=== PATIENT | female | born 1985 | race Caucasian/White ===

== ENCOUNTER 2017-01-31 15:19 | Emergency (ER) | payer SELFPAY ==
--- NOTE | 2017-01-31 17:27 | ED CLINICAL REPORT ---
Clinical Report - Physicians/Mid Levels [facility] [address] [place] [address] 01/31/2017 15:20 [id number] Time Seen: 15:30; initial patient contact. Arrived- By private vehicle. Historian- patient. HISTORY OF PRESENT ILLNESS Chief Complaint: ABDOMINAL PAIN. At its maximum, severity described as mild. When seen in the E.D., severity described as mild. Modifying factors- worsened by food. Not relieved by anything. It is described as "pain" and diffuse. No radiation. This started about 4 days ago. The patient has had nausea, loss of appetite and vomiting. No diarrhea. Similar symptoms previously: Many times. Recent medical care: Not recently seen/assessed. REVIEW OF SYSTEMS No constipation, hematemesis, difficulty with urination, pain with urination or urinary frequency. No bloody stools or fever. She has had chills. All systems otherwise negative, except as recorded above. PAST HISTORY Cyclic Vomiting. PSEUDOseizure. Substance Abuse. Seizure Disorder? Appendectomy. No history of peptic ulcer. SOCIAL HISTORY Never smoker. No alcohol use or drug use. ADDITIONAL NOTES The nursing notes have been reviewed. PHYSICAL EXAM Vital Signs: 01/31/2017 15:28 BP: 125/72. HR: 64. RR: 18. O2 saturation: 98%. Temp: 98.3 F. Pain level now: 9/10. Have been reviewed as normal. Appearance: Alert. Oriented X3. Patient in mild distress. Eyes: Eyes normal inspection. ENT: Dry mucous membranes present. CVS: Normal heart rate and rhythm. Heart sounds normal. Respiratory: No respiratory distress. Breath sounds normal. Abdomen: Soft. Mild tenderness in the left upper quadrant. Bowel sounds normal. No organomegaly. No mass. Back: Normal inspection. No CVA tenderness. Skin: Skin warm and dry. Normal skin color. No rash. Normal skin turgor. Extremities: No lower extremity edema. Neuro: Oriented X 3. No motor deficit. LABS, X-RAYS, AND EKG Laboratory Tests: UA-Culture if indicated: (ABY: 01/31/2017 15:30) ( [facility] 01/31/2017 15:53) Final results Test Result Flag Units (Reference) URINE COLOR YELLOW URINE APPEARANCE CLEAR URINE GLUCOSE NEGATIVE (NEGATIVE) URINE BILIRUBIN ICTOTEST NEGATIVE (NEGATIVE) URINE KETONE TRACE (NEGATIVE) URINE SPECIFIC GRAVITY 1.025 (1.010-1.030) URINE PH 6.0 (5.0-8.0) URINE PROTEIN TRACE (NEGATIVE) URINE UROBILINOGEN 0.2 EU/dL (0.2-1.0) URINE NITRITE NEGATIVE (NEGATIVE) URINE BLOOD NEGATIVE (NEGATIVE) URINE LEUK ESTERASE NEGATIVE (NEGATIVE) URINE RBC 0-1 rbc/hpf (0-1) URINE WBC 1-3 wbc/hpf (0-1) URINE EPITHELIAL CELLS 5-10 EPI/hpf (0-5) URINE BACTERIA FEW (1+) (NONE SEEN) URINE COMMENT CULT NOT INDICATED 2+ MUCUSURINE CULTURES ARE SET-UP BASED ON THE FOLLOWING CRITERIA:POSITIVE NITRITEPOSITIVE LEUKOCYTE ESTERASEGREATER THAN 10 WHITE BLOOD CELLSMODERATE (2+) OR GREATER BACTERIA Urine: (ABY: 01/31/2017 15:30) ( [facility] 01/31/2017 15:49) Final results Test Result Flag Units (Reference) URINE NEGATIVE CBC w Diff: (ABY: 01/31/2017 15:40) ( [facility] 01/31/2017 15:54) Final results Test Result Flag Units (Reference) WHITE BLOOD COUNT 9.8 K/uL (4.5-11.5) RED BLOOD COUNT 4.78 M/uL (4.00-5.20) HEMOGLOBIN 13.8 gm/dL (12.0-16.0) HEMATOCRIT 40.9 % (36.0-46.0) MEAN CELL VOLUME 86 fL (80-100) MEAN CORPUSCULAR HGB 29 pg (26-34) MEAN CORPUSCULAR HGB CONC 34 g/dL (31-37) RED CELL DISTRIBUTION WIDTH 13.4 % (11.6-14.8) PLATELET COUNT 329 K/uL (150-400) NEUTROPHIL % 84.1 H % (50-75) LYMPH % 10.6 L % (25-40) MONO % 4.7 % (3-14) EOSINOPHIL % 0.1 % (0-4) BASOPHIL % 0.5 % (0-2) CMP: (ABY: 01/31/2017 15:40) ( MsgRcvd 01/31/2017 16:12) Final results Test Result Flag Units (Reference) GLUCOSE 118 H mg/dL (70-110) BUN 19 H mg/dL (7-18) CREATININE 0.7 mg/dL (0.6-1.3) Estimated GFR >60 mL/min Estimated GFR- >60 mL/min Note: Persistent reduction over 3 months in eGFR<60 mL/min/1.73 m2 defines CKD. Patients with eGFR values>=60 mL/min/1.73 m2 may also have CKD if evidence ofpersistent proteinuria. Additional information may be foundat www.kidney.org. SODIUM 140 mmol/L (136-145) POTASSIUM 3.4 L mmol/L (3.5-5.1) CHLORIDE 101 mmol/L (98-107) CARBON DIOXIDE 24 mmol/L (21-32) CALCIUM 9.3 mg/dL (8.5-10.1) TOTAL PROTEIN 8.4 H g/dL (6.4-8.2) ALBUMIN 4.5 g/dL (3.3-5.0) BILIRUBIN, TOTAL 1.2 H mg/dL (0.0-1.0) ALKALINE PHOSPHATASE 74 U/L (46-116) AST (SGOT) 17 U/L (15-37) ALT (SGPT) 26 U/L (12-78) LIPASE 82 U/L (73-393) AMYLASE 19 L U/L (25-115) . PROGRESS AND PROCEDURES Course of Care: 17:05 01/31/17. Pt has been here multiple times in the past with the same complaints. Only subjective findings. Normal labs again today w/ the exception of very mild hypokalemia. Nl WBC, not , and no UTI. Pt has received narcotics on multiple visits in the past 12 months from here. CLINICAL IMPRESSION Chronic left upper quadrant abdominal pain of unknown cause. Vomiting with nausea and dehydration. INSTRUCTIONS Drink plenty of fluids. Avoid alcohol and NSAIDS. NSAIDS include aspirin, ibuprofen (Advil) and naproxen (Aleve) until better. Your Current Medications: CONTINUE TAKING THE FOLLOWING MEDICATIONS: None*. Prescription Medications: Zofran (orally disintegrating tablets) 4 mg: take 1 orally every 6 hours as needed for nausea and vomiting. Dispense ten (10). No refill. Substitution is permissible. Zantac 150 mg: take 1 orally every 12 hours. Dispense sixty (60). No refills. Substitution is permissible. Follow-up: Screening today revealed the patient's blood pressure to be in the hypertensive range. The patient should follow up with a primary care provider for blood pressure management. Follow-up with: Zac Cramer MD, General Surgeon, , [facility], [address] [place] [address] Follow up in about two days. Call for an appointment. (Electronically signed by William Null Dr. 01/31/2017 17:14)
--- NOTE | 2017-01-31 17:27 | ED NURSING NOTES ---
Clinical Report - Nurses [facility] [address] [place] [address] 01/31/2017 15:20 Patient: ELIZA VAZQUEZ TRIAGE Triage time 15:28. Acuity: LEVEL 3. Chief Complaint: ABDOMINAL PAIN. 15:28 01/31/17. 15:01/31/17. Alert. SEPSIS SCREEN: Sepsis Screen. Negative (no infection suspected/documented). --15:31 Christiano Morrison R.N. 15:28 01/31/17. BP: 125/72. HR: 64. RR: 18. O2 saturation: 98% on room air. Temp: 98.3 F (oral). Pain level now: 9/10. --15:31 Christiano Morrison R.N. Weight: 72.5 kg estimated. Height/Length: 66 inches Per Patient. BMI: 25.8. --15:31 Christiano Morrison R.N. Medications None. --15:31 Christiano Morrison R.N. Medication/allergy information source: the patient. --15:31 Christiano Morrison R.N. Allergies Penicillins. --15:31 Christiano Morrison R.N. History Arrived by private vehicle. Historian: patient. Unaccompanied. Primary physician (KATE). 15:28 01/31/17. She has had nausea, vomiting and diarrhea. Treatment WORK FROM HOME: None. PAST MEDICAL HX: Last normal menstrual period- 1st Week of January started. Denies current . SOCIAL HX: The patient has had contact with a sick family member. (Children). FALL RISK ASSESSMENT: Fall risk assessment completed. No fall risk identified. NUTRITIONAL RISK ASSESSMENT: The nutritional risk assessment revealed no deficiencies. FUNCTIONAL ASSESSMENT: Functional assessment: no impairments noted. LEARNING NEEDS ASSESSMENT: The learning needs assessment revealed no barriers. SKIN INTEGRITY ASSESSMENT: Skin integrity risk assessment completed. No skin integrity risk identified. --15:31 Christiano Morrison R.N. PROBLEMS: Cyclic Vomiting. Abnormal Test. Anxiety Reaction. Abnormal Liver Function Test. Pseudoseizure. Substance Abuse. Nausea. Seizure. Ovarian Cyst. Abdominal Pain. Vomiting. Seizure Disorder. Immunizations. Cervical Radiculopathy. --15:31 Christiano Morrison R.N. ADDITIONAL SURGERIES: Appendectomy. Previous Abdominal Surgery. --15:31 Christiano Morrison R.N. Assessment 15:01/31/17. --15:31 Christiano Morrison R.N. Interventions 15:01/31/17. 15:01/31/17. ID and allergy band on patient. To treatment room. --15:31 Christiano Morrison R.N. PHYSICAL ASSESSMENT 15:01/31/17. To room via wheelchair. GENERAL / NEURO / PSYCH: Alert. Oriented X 4. Appears in pain. RESPIRATORY: Respirations not labored. CVS: Capillary refill less than 2 seconds. GI / : Abdominal tenderness in the left upper quadrant. SKIN: Skin is warm and dry. --15:32 Christiano Morrison R.N. NURSING PROGRESS NOTES 15:01/31/2017 Site #1 started via IV in the right antecubital space with an 20g angiocath; one attempt. Blood drawn: rainbow set. Labeled in the presence of the patient and sent to the lab. Saline lock flushed with 10 mL saline. --15:42 Christiano Morrison R.N. 15:01/31/17. The plan of care for this patient has been created. Monitoring of patient in place. Patient gowned. Head of bed elevated. Two patient identifiers checked. Call light placed in reach. Side rails up x 2. Bed placed in lowest position. Brakes of bed on. Patient ready for evaluation- chart flagged and notification provided. --15:32 Christiano Morrison R.N. 15:01/31/17. Patient ID band checked for patient name and birthdate: patient confirmed. Clean catch urine collected with return of yellow-colored urine. --15:32 Christiano Morrison R.N. 15:42 01/31/2017 Started bag #1 1000 mL IV Fluids IV NS (Saline); at 1000 mL/hr over 1 hour(s) via site #1. Allergies verified and confirmed 5 rights. IV patency established. IV site checked: no pain, redness, or swelling. IV flushed thoroughly pre- and post-medication administration. Completed per protocol. --15:42 Christiano Morrison R.N. 15:42 01/31/2017 Zofran (Ondansetron HCl) IVP 4 mg given over 2 minute(s) via site #1. Allergies verified and confirmed 5 rights. IV patency established. IV site checked: no pain, redness, or swelling. IV flushed thoroughly pre- and post-medication administration. IVP given by RN. --15:42 Christiano Morrison R.N. 15:57 01/31/2017 PHENERGAN (Promethazine HCl) IVP 25 mg given over 3 minute(s) via site #1. Allergies verified and confirmed 5 rights. IV patency established. IV site checked: no pain, redness, or swelling. IV flushed thoroughly pre- and post-medication administration. IVP given by RN. --15:57 Christiano Morrison R.N. 15:58 01/31/17. --15:58 Christiano Morrison R.N. 15:57 01/31/17. BP: 154/89. HR: 55. RR: 18. O2 saturation: 100% on room air. --15:58 Christiano Morrison R.N. 15:58 01/31/17. Patient informed about reason for wait and about plan of care. Patient waiting for lab results. --15:58 Christiano Morrison R.N. 16:25 01/31/2017 Started bag #1 1000 mL IV Fluids IV NS (Saline); at 1000 mL/hr over 1 hour(s) via site #1. Allergies verified and confirmed 5 rights. IV patency established. IV site checked: no pain, redness, or swelling. IV flushed thoroughly pre- and post-medication administration. Completed per protocol. --16:35 Christiano Morrison R.N. 16:25 01/31/2017 IV Fluids IV NS Discontinued: bag #1 infused. Total amount infused: 1000 mL. IV patency established. IV site checked: no pain, redness, or swelling. IV flushed thoroughly. --16:35 Christiano Morrison R.N. 16:34 01/31/2017 Started 20 mg of Famotidine IVPB in bag #1 50 mL; at 100 mL/hr over 30 minute(s) via site #1; Allergies verified and confirmed 5 rights. IV patency established. IV site checked: no pain, redness, or swelling. IV flushed thoroughly pre- and post-medication administration. Completed per protocol. --16:34 Christiano Morrison R.N. <<STRICKEN ENTRY-- 16:37 01/31/2017 Famotidine IVPB Discontinued: infused. Total amount infused: 50 mL. IV patency established. IV site checked: no pain, redness, or swelling. IV flushed thoroughly. --17:02 Christiano Morrison R.N. --END STRIKE>> Correction. --17:02 Christiano Morrison R.N. 16:57 01/31/2017 Famotidine IVPB Discontinued: infused. Total amount infused: 50 mL. IV patency established. IV site checked: no pain, redness, or swelling. IV flushed thoroughly. --17:02 Christiano Morrison R.N. 17:05 01/31/2017 Toradol IVP 30 mg given over 2 minute(s) via site #1. Allergies verified and confirmed 5 rights. IV patency established. IV site checked: no pain, redness, or swelling. IV flushed thoroughly pre- and post-medication administration. IVP given by RN. --17:05 Christiano Morrison R.N. 17:18 01/31/2017 IV Fluids IV NS Discontinued: bag #2 infused. Total amount infused: 1000 mL. IV patency established. IV site checked: no pain, redness, or swelling. IV flushed thoroughly. --17:28 Christiano Morrison R.N. DISPOSITION / DISCHARGE 17:21 01/31/2017 Site #1 removed upon discharge. Catheter intact. --17:21 Christiano Morrison R.N. 17:28 01/31/17. Condition at departure: improved. The goals identified in the patient's plan of care were met. No learning barriers present. Discharge instructions provided and reviewed with the patient. Reviewed warnings. Reviewed medication(s). Treatments reviewed. Patient verbalized understanding. Written instructions provided in French. FALL RISK ASSESSMENT: Fall risk assessment completed. No fall risk identified. --17:28 Christiano Morrison R.N. 17:21 01/31/17. BP: 150/85. HR: 77. RR: 14. O2 saturation: 100% on room air. Temp: 97.8 F (oral). --17:28 Christiano Morrison R.N. 17:28 01/31/17. The patient was discharged by the physician. She was discharged home and unaccompanied at time of discharge. She left the Emergency Department ambulatory and via private vehicle. --17:28 Christiano Morrison R.N. 17:28 01/31/17. Departure time: 17:28. --17:28 Christiano Morrison R.N. Locked/Released at 01/31/2017 17:30 by Christiano Morrison R.N.
--- NOTE | 2017-01-31 17:28 | ED ORDER SUMMARY ---
..... Patient: ELIZA VAZQUEZ OrderSheet [facility] VisitID: [id number] [place] [address] 31y, F Registration Date/Time: 01/31/2017 ORDER SHEET Weight: 72.5 kg (estimated) Allergies: Penicillins GENERAL ORDERS: UA-Culture if indicated Urgent (15:32 01/31/2017 JBoardley R.N. per protocol) (Ack 15:39 KHoerner) (15:39 KHoerner) Urine Urgent (15:32 01/31/2017 JBoardley R.N. per protocol) (Ack 15:39 KHoerner) (15:39 KHoerner) CBC w Diff Urgent (15:41 01/31/2017 JBoardley R.N. per protocol) (Ack 15:42 KHoerner) (15:46 JBoardley R.N.) CMP Urgent (15:41 01/31/2017 JBoardley R.N. per protocol) (Ack 15:42 KHoerner) (15:46 JBoardley R.N.) Amylase Urgent (15:41 01/31/2017 JBoardley R.N. per protocol) (Ack 15:42 KHoerner) (15:46 JBoardley R.N.) Lipase Urgent (15:41 01/31/2017 JBoardley R.N. per protocol) (Ack 15:42 KHoerner) (15:46 JBoardley R.N.) MEDICATION ORDERS: Phenergan IV 25 mg (HIGH ALERT MEDICATION, NOW) (15:51 01/31/2017 Ale Baptiste) (Ack 15:52 JBoardley R.N.) (15:57 JBoardley R.N.) IV FLUIDS: IV NS : initial bolus none -, then 1000 mL/hr for X1 (NOW); Routine (15:41 01/31/2017 JBoardley R.N. per protocol) (15:42 JBoardley R.N.) Zofran IV 4 mg (NOW) (15:41 01/31/2017 JBoardley R.N. per protocol) (15:42 Gonzalez R.N.) Famotidine IV 20 mg/50mL (NOW) (16:25 01/31/2017 Ale Baptiste) (Ack 16:27 Gonzalez R.N.) (16:34 JBoardlekenroy R.N.) IV NS : initial bolus none -, then 1000 mL/hr for X1 (NOW) (16:29 01/31/2017 Ale Baptiste) (16:35 Gonzalez Diaz.N.) Toradol IV 30 mg (NOW) (17:03 01/31/2017 Ale Baptiste) (17:05 Gonzalez R.N.) ORDER SHEET NOTES: [Electronically signed by William Null Dr. (17:14 01/31/2017)] [Electronically signed by Christiano Morrison R.N. (17:30 01/31/2017)] [Electronically locked/signed by Christiano Morrison R.N. (17:30 01/31/2017)]
--- NOTE | 2017-01-31 17:28 | ED ORDER SUMMARY ---
..... Patient: ELIZA VAZQUEZ OrderSheet [facility] VisitID: [id number] [place] [address] 31y, F Registration Date/Time: 01/31/2017 ORDER SHEET Weight: 72.5 kg (estimated) Allergies: Penicillins GENERAL ORDERS: UA-Culture if indicated Urgent (15:32 01/31/2017 JBoardley R.N. per protocol) (Ack 15:39 KHoerner) (15:39 KHoerner) Urine Urgent (15:32 01/31/2017 JBoardley R.N. per protocol) (Ack 15:39 KHoerner) (15:39 KHoerner) CBC w Diff Urgent (15:41 01/31/2017 JBoardley R.N. per protocol) (Ack 15:42 KHoerner) (15:46 JBoardley R.N.) CMP Urgent (15:41 01/31/2017 JBoardley R.N. per protocol) (Ack 15:42 KHoerner) (15:46 JBoardley R.N.) Amylase Urgent (15:41 01/31/2017 JBoardley R.N. per protocol) (Ack 15:42 KHoerner) (15:46 JBoardley R.N.) Lipase Urgent (15:41 01/31/2017 JBoardley R.N. per protocol) (Ack 15:42 KHoerner) (15:46 JBoardley R.N.) MEDICATION ORDERS: Phenergan IV 25 mg (HIGH ALERT MEDICATION, NOW) (15:51 01/31/2017 Ale Baptiste) (Ack 15:52 JBoardley R.N.) (15:57 JBoardley R.N.) IV FLUIDS: IV NS : initial bolus none -, then 1000 mL/hr for X1 (NOW); Routine (15:41 01/31/2017 JBoardley R.N. per protocol) (15:42 JBoardley R.N.) Zofran IV 4 mg (NOW) (15:41 01/31/2017 JBoardley R.N. per protocol) (15:42 Gonzalez R.N.) Famotidine IV 20 mg/50mL (NOW) (16:25 01/31/2017 Ale Baptiste) (Ack 16:27 Gonzalez R.N.) (16:34 JBoardlekenroy R.N.) IV NS : initial bolus none -, then 1000 mL/hr for X1 (NOW) (16:29 01/31/2017 Ale Baptiste) (16:35 Gonzalez Diaz.N.) Toradol IV 30 mg (NOW) (17:03 01/31/2017 Ale Baptiste) (17:05 Gonzalez R.N.) ORDER SHEET NOTES: [Electronically signed by William Null Dr. (17:14 01/31/2017)] [Electronically signed by Christiano Morrison R.N. (17:30 01/31/2017)] [Electronically locked/signed by Christiano Morrison R.N. (17:30 01/31/2017)]
--- NOTE | 2017-01-31 17:31 | ED DISCHARGE INSTRUCTIONS ---
Patient: ELIZA VAZQUEZ General Instructions [facility] VisitID: [id number] [place] [address] 31y, F Registration Date/Time: 01/31/2017 Chronic left upper quadrant abdominal pain of unknown cause. Vomiting with nausea and dehydration. INSTRUCTIONS Drink plenty of fluids. Avoid alcohol and NSAIDS. NSAIDS include aspirin, ibuprofen (Advil) and naproxen (Aleve) until better. Your Current Medications: CONTINUE TAKING THE FOLLOWING MEDICATIONS: None*. Prescription Medications: Zofran (orally disintegrating tablets) 4 mg: take 1 orally every 6 hours as needed for nausea and vomiting. Dispense ten (10). No refill. Substitution is permissible. Zantac 150 mg: take 1 orally every 12 hours. Dispense sixty (60). No refills. Substitution is permissible. Follow-up: Screening today revealed the patient's blood pressure to be in the hypertensive range. The patient should follow up with a primary care provider for blood pressure management. Follow-up with: Zac Cramer MD, General Surgeon, , [facility], [address] [place] [address] Follow up in about two days. Call for an appointment. ADDITIONAL INFORMATION Vomiting [6Yr-Adult] Vomiting is a common symptom that may be due to different causes. These include gastroenteritis ("stomach flu"), food poisoning and gastritis. There are other more serious causes of vomiting which may be hard to diagnose early in the illness. Therefore, it is important to watch for the warning signs listed below. The main danger from repeated vomiting is dehydration. This is due to excess loss of water and minerals from the body. When this occurs, body fluids must be replaced. Home Care: If symptoms are severe, rest at home for the next 24 hours. You may use acetaminophen (Tylenol) or ibuprofen (Motrin, Advil) to control fever, unless another medicine was prescribed. [NOTE : If you have chronic liver or kidney disease or ever had a stomach ulcer or GI bleeding, talk with your doctor before using these medicines.] (Aspirin should never be used in anyone under 18 years of age who is ill with a fever. It may cause severe liver damage.) Avoid tobacco and alcohol use, which may worsen your symptoms. If medicines for vomiting were prescribed, take as directed. Once vomiting stops, then follow these guidelines: During The First 12-24 Hours follow the diet below: FRUIT JUICES: Apple, grape juice, clear fruit drinks, and electrolyte replacement drinks. BEVERAGES: Soft drinks without caffeine; mineral water (plain or flavored), decaffeinated tea and coffee. SOUPS: Clear broth, consomm and bouillon DESSERTS: Plain gelatin, popsicles and fruit juice bars. As you feel better, you may add 6-8 ounces of yogurt per day. During The Next 24 Hours you may add the following to the above: Hot cereal, plain toast, bread, rolls, crackers Plain noodles, rice, mashed potatoes, chicken noodle or rice soup Unsweetened canned fruit (avoid pineapple), bananas Limit caffeine and chocolate. No spices or seasonings except salt. During The Next 24 Hours Gradually resume a normal diet, as you feel better and your symptoms lessen. Follow Up with your doctor as advised if you are not improving over the next 2-3 days. Get Prompt Medical Attention if any of the following occur: Constant right-sided lower abdominal pain or increasing general abdominal pain Continued vomiting (unable to keep liquids down) for 24 hours Frequent diarrhea (more than 5 times a day); blood (red or black color) or mucus in diarrhea Reduced urine output or extreme thirst Weakness, dizziness or fainting Unusually drowsy or confused Fever of 100.4F (38C) oral or higher, not better with fever medication Yellow color of the eyes or skin Abdominal Pain, Unknown Cause (Female) The exact cause of your abdominal (stomach) pain is not certain. This does not mean that this is something to worry about, or the right tests were not done. Everyone likes to know the exact cause of the problem, but sometimes with abdominal pain, there is no clear-cut cause, and this could be a good thing. The good news is that your symptoms can be treated, and you will feel better. Your condition does not seem serious now; however, sometimes the signs of a serious problem may take more time to appear. For this reason,it is important for you to watch for any new symptoms, problems,or worsening of your condition. Over the next few days, the abdominal pain may come and go, or be continuous. Other common symptoms can include nausea and vomiting. Sometimes it can be difficult to tell if you feel nauseous, you may just feel bad and not associate that feeling with nausea. Constipation, diarrhea, and a fever may go along with the pain. The pain may continue even if treated correctly over the following days. Depending on how things go, sometimes the cause can become clear and may require further or different treatment. Additional evaluations, medications, or tests may be needed. Home care Your health care provider may prescribe medications for pain, symptoms, or an infection. Follow the health care provider's instructions for taking these medications. General care Rest until your next exam. No strenuous activities. Try to find positions that ease discomfort. A small pillow placed on the abdomen may help relieve pain. Something warm on your abdomen (such as a heating pad) may help, but be careful not to burn yourself. Diet Do not force yourself to eat, especially if having cramps, vomiting, or diarrhea. Water is important so you do not get dehydrated. Soup may also be good. Sports drinks may also help, especially if they are not too acidic. Make sure you don't drink sugary drinks as this can make things worse. Take liquids in small amounts. Do not guzzle them. Caffeine sometimes makes the pain and cramping worse. Avoid dairy products if you have vomiting or diarrhea. Don't eat large amounts at a time. Wait a few minutes between bites. Eat a diet low in fiber (called a low-residue diet). Foods allowed include refined breads, white rice, fruit and vegetable juices without pulp, tender meats. These foods will pass more easily through the intestine. Avoid whole-grain foods, whole fruits and vegetables, meats, seeds and nuts, fried or fatty foods, dairy, alcohol and spicy foods until your symptoms go away. Follow-up care Follow up with your health care provider as instructed, or if your pain does not begin to improve in the next 24 hours. When to seek medical care Seek prompt medical care if any of the following occur: Pain gets worse or moves to the right lower abdomen New or worsening vomiting or diarrhea Swelling of the abdomen Unable to pass stool for more than three days Fever of 100.4F (38C) or higher, or as directed by your healthcare provider. Blood in vomit or bowel movements (dark red or black color) Jaundice (yellow color of eyes and skin) Weakness, dizziness Chest, arm, back, neck or jaw pain Unexpected vaginal bleeding or missed period Call 911 Call emergency services if any of the following occur: Trouble breathing Confusion Fainting or loss of consciousness Rapid heart rate Seizure [place] Diet A bland diet is used for patients with an upset stomach. It consists of foods that are mild and easy to digest. It is better to eat small frequent meals rather than three large meals a day. BEVERAGES OK: Fruit juices, non-caffeinated teas and coffee, non-carbonated cuello AVOID: Carbonated beverage, caffeinated tea and coffee, all alcoholic beverages BREAD OK: Refined white, wheat or rye bread, antonio or soda crackers, [place] toast, plain rolls, bagels AVOID: Whole-grain bread CEREAL OK: Refined cereals: cooked or ready to eat AVOID: Whole grain cereals and granola, or those containing bran, seeds or nuts DESSERTS OK: Peanut butter and all others except those to "avoid" AVOID: Chocolate, cocoa, coconut, popcorn, nuts, seeds, jam, marmalade FRUITS OK: Canned, cooked, frozen or fresh fruits without seeds or tough skin AVOID: Olives, skin and seeds of fruit MEATS OK: All fresh or preserved meat, fish and fowl AVOID: Any that are prepared with those spices to "avoid" CHEESE & EGGS OK: Eggs, cottage cheese, cream cheese, other cheeses AVOID: All cheeses made with those spices to "avoid" POTATOES & PASTA OK: Potato, rice, macaroni, noodles, spaghetti AVOID: None SOUPS OK: All soups without heavy seasoning AVOID: Soups made with those spices to "avoid" VEGETABLES OK: Canned, cooked, fresh or frozen mildly flavored vegetables without seeds, skins or coarse fiber AVOID: Vegetables prepared with those spices to "avoid"; skin and seeds of vegetables and those with coarse fiber SPICES OK: Salt, lemon and agdaagux juice, vinegar, all extracts, milagros, cinnamon, thyme, mace, allspice, paprika AVOID: [place] powder, cloves, pepper, seed spices, garlic, gravy pickles, highly seasoned salad dressings Ondansetron Oral disintegrating tablet What is this medicine? ONDANSETRON (on DUSTY se norma) is used to treat nausea and vomiting caused by chemotherapy. It is also used to prevent or treat nausea and vomiting after surgery. How should I use this medicine? These tablets are made to dissolve in the mouth. Do not try to push the tablet through the foil backing. With dry hands, peel away the foil backing and gently remove the tablet. Place the tablet in the mouth and allow it to dissolve, then swallow. While you may take these tablets with water, it is not necessary to do so. Talk to your recreation establishment manager regarding the use of this medicine in children. Special care may be needed. What side effects may I notice from receiving this medicine? Side effects that you should report to your doctor or health respiratory care instructor as soon as possible: allergic reactions like skin rash, itching or hives, swelling of the face, lips, or tongue breathing problems dizziness fast or irregular heartbeat feeling faint or lightheaded, falls fever and chills swelling of the hands and feet tightness in the chest Side effects that usually do not require medical attention (report to your doctor or health respiratory care instructor if they continue or are bothersome): constipation or diarrhea headache What may interact with this medicine? Do not take this medicine with any of the following medications: -apomorphine -cisapride -dofetilide -dronedarone -pimozide -thioridazine -ziprasidone This medicine may also interact with the following medications: -carbamazepine -phenytoin -rifampicin -tramadol -other medicines that prolong the QT interval (cause an abnormal heart rhythm) What if I miss a dose? If you miss a dose, take it as soon as you can. If it is almost time for your next dose, take only that dose. Do not take double or extra doses. Where should I keep my medicine? Keep out of the reach of children. Store between 2 and 30 degrees C (36 and 86 degrees F). Throw away any unused medicine after the expiration date. What should I tell my health care provider before I take this medicine? They need to know if you have any of these conditions: heart disease history of irregular heartbeat liver disease low levels of magnesium or potassium in the blood an unusual or allergic reaction to ondansetron, granisetron, other medicines, foods, dyes, or preservatives or trying to get breast-feeding What should I watch for while using this medicine? Check with your doctor or health respiratory care instructor as soon as you can if you have any sign of an allergic reaction. Ranitidine Hydrochloride Oral tablet What is this medicine? RANITIDINE (ra ILIR sheikh) is a type of antihistamine that blocks the release of stomach acid. It is used to treat stomach or intestinal ulcers. It can relieve ulcer pain and discomfort, and the heartburn from acid reflux. How should I use this medicine? Take this medicine by mouth with a glass of water. Follow the directions on the prescription label. If you only take this medicine once a day, take it at bedtime. Take your medicine at regular intervals. Do not take your medicine more often than directed. Do not stop taking except on your doctor's advice. Talk to your recreation establishment manager regarding the use of this medicine in children. Special care may be needed. What side effects may I notice from receiving this medicine? Side effects that you should report to your doctor or health respiratory care instructor as soon as possible: agitation, nervousness, depression, hallucinations allergic reactions like skin rash, itching or hives, swelling of the face, lips, or tongue breast enlargement in both males and females breathing problems redness, blistering, peeling or loosening of the skin, including inside the mouth unusual bleeding or bruising unusually weak or tired vomiting yellowing of the skin or eyes Side effects that usually do not require medical attention (report to your doctor or health respiratory care instructor if they continue or are bothersome): constipation or diarrhea dizziness headache nausea What may interact with this medicine? atazanavir delavirdine gefitinib glipizide ketoconazole midazolam procainamide propantheline triazolam warfarin What if I miss a dose? If you miss a dose, take it as soon as you can. If it is almost time for your next dose, take only that dose. Do not take double or extra doses. Where should I keep my medicine? Keep out of the reach of children. Store at room temperature between 15 and 30 degrees C (59 and 86 degrees F). Protect from light and moisture. Keep container tightly closed. Throw away any unused medicine after the expiration date. What should I tell my health care provider before I take this medicine? They need to know if you have any of these conditions: kidney disease liver disease porphyria an unusual or allergic reaction to ranitidine, other medicines, foods, dyes, or preservatives or trying to get breast-feeding What should I watch for while using this medicine? Tell your doctor or health respiratory care instructor if your condition does not start to get better or gets worse. You may need to take this medicine for several days as prescribed before your symptoms get better. Finish the full course of tablets prescribed, even if you feel better. Do not smoke cigarettes or drink alcohol. These increase irritation in your stomach and can lengthen the time it will take for ulcers to heal. Cigarettes and alcohol can also make acid reflux or heartburn worse. If you get black, tarry stools or vomit up what looks like coffee grounds, call your doctor or health respiratory care instructor at once. You may have a bleeding ulcer. You have been given the following additional information: Vomiting (6Y-Adult) Abdominal Pain, Unknown Cause, (Female) Diet, [place] (Adult) Ondansetron Oral disintegrating tablet Ranitidine Hydrochloride Oral tablet (Electronically signed by William Null Dr. 01/31/2017 17:14)
--- NOTE | 2017-01-31 17:31 | ED MAR SUMMARY ---
..... Medication Administration Record [facility] [address] [place] [place] [address] Patient: ELIZA VAZQUEZ Visit ID: [id number] 31y, F Weight: 72.5 kg Height/Length: 66 in BMI: 25.8 ALLERGIES: Penicillins Start 15:42 01/31/2017 Christiano Morrison R.N., Stop 16:01/31/2017 Christiano Morrison R.N. Medication Administered: IV NS (SALINE), Dose: IV Fluids over 1 hour(s), Rate: 1000 mL/hr, Dispensed: 1000 mL bag, Site: #1 right AC. Medication Ordered: IV NS : initial bolus none -, then 1000 mL/hr for X1 (NOW); Routine. Given 15:42 01/31/2017 Christiano Morrison R.N. Medication Administered: ZOFRAN [IVP] (ONDANSETRON HCL), Dose: 4 mg IVP over 2 minute(s), Site: #1 right AC. Medication Ordered: Zofran IV 4 mg (NOW). Given 15:57 01/31/2017 Christiano Morrison R.N. Medication Administered: PHENERGAN [IVP] (PROMETHAZINE HCL), Dose: 25 mg IVP over 3 minute(s), Site: #1 right AC. Medication Ordered: Phenergan IV 25 mg (HIGH ALERT MEDICATION, NOW). Start 16:25 01/31/2017 Christiano Morrison R.N., Stop 17:18 01/31/2017 Christiano Morrison R.N. Medication Administered: IV NS (SALINE), Dose: IV Fluids over 1 hour(s), Rate: 1000 mL/hr, Dispensed: 1000 mL bag, Site: #1 right AC. Medication Ordered: IV NS : initial bolus none -, then 1000 mL/hr for X1 (NOW). Start 16:34 01/31/2017 Christiano Morrison R.N., Stop 16:57 01/31/2017 Christiano Morrison R.N. Medication Administered: FAMOTIDINE [IVPB], Dose: 20 mg IVPB over 30 minute(s), Rate: 100 mL/hr, Dispensed: 50 mL bag, Site: #1 right AC. Medication Ordered: Famotidine IV 20 mg/50mL (NOW). Given 17:05 01/31/2017 Christiano Morrison R.N. Medication Administered: TORADOL [IVP], Dose: 30 mg IVP over 2 minute(s), Site: #1 right AC. Medication Ordered: Toradol IV 30 mg (NOW).
--- NOTE | 2017-01-31 17:31 | ED MED RECONCILIATION SUMMARY ---
Patient: ELIZA VAZQUEZ Medication Reconciliation Report [facility] VisitID: [id number] [place] [address] 31y, F Registration Date/Time: 01/31/2017 Weight: 72.5 kg Height/Length: 66 in. BMI: 25.8 ALLERGIES: Penicillins The patient's Home Medications are listed below: NONE. The source(s) of the original Home Medication information: patient The following Medications were given to the patient in the Emergency Department: IV NS IV Fluids bolus 0, then 1000 mL/hr, administered: 01/31/2017 3:42:00 PM Zofran [IVP] IVP 4 mg, administered: 01/31/2017 3:42:00 PM PHENERGAN [IVP] IVP 25 mg, administered: 01/31/2017 3:57:00 PM Famotidine [IVPB] IVPB bolus 0, then 20 mg 100 mL/hr, administered: 01/31/2017 4:34:00 PM IV NS IV Fluids bolus 0, then 1000 mL/hr, administered: 01/31/2017 4:25:00 PM Toradol [IVP] IVP 30 mg, administered: 01/31/2017 5:05:00 PM The following Medications were prescribed to the patient: Zofran (orally disintegrating tablets) 4 mg: take 1 orally every 6 hours as needed for nausea and vomiting. Dispense ten (10). No refill. Substitution is permissible. -- William Null Dr. Zantac 150 mg: take 1 orally every 12 hours. Dispense sixty (60). No refills. Substitution is permissible. -- William Null Dr.
--- NOTE | 2017-01-31 17:31 | ED MAR SUMMARY ---
..... Medication Administration Record [facility] [address] [place] [address] Patient: ELIZA VAZQUEZ Visit ID: [id number] 31y, F Weight: 72.5 kg Height/Length: 66 in BMI: 25.8 ALLERGIES: Penicillins Start 15:42 01/31/2017 Christiano Morrison R.N., Stop 16:01/31/2017 Christiano Morrison R.N. Medication Administered: IV NS (SALINE), Dose: IV Fluids over 1 hour(s), Rate: 1000 mL/hr, Dispensed: 1000 mL bag, Site: #1 right AC. Medication Ordered: IV NS : initial bolus none -, then 1000 mL/hr for X1 (NOW); Routine. Given 15:42 01/31/2017 Christiano Morrison R.N. Medication Administered: ZOFRAN [IVP] (ONDANSETRON HCL), Dose: 4 mg IVP over 2 minute(s), Site: #1 right AC. Medication Ordered: Zofran IV 4 mg (NOW). Given 15:57 01/31/2017 Christiano Morrison R.N. Medication Administered: PHENERGAN [IVP] (PROMETHAZINE HCL), Dose: 25 mg IVP over 3 minute(s), Site: #1 right AC. Medication Ordered: Phenergan IV 25 mg (HIGH ALERT MEDICATION, NOW). Start 16:25 01/31/2017 Christiano Morrison R.N., Stop 17:18 01/31/2017 Christiano Morrison R.N. Medication Administered: IV NS (SALINE), Dose: IV Fluids over 1 hour(s), Rate: 1000 mL/hr, Dispensed: 1000 mL bag, Site: #1 right AC. Medication Ordered: IV NS : initial bolus none -, then 1000 mL/hr for X1 (NOW). Start 16:34 01/31/2017 Christiano Morrison R.N., Stop 16:57 01/31/2017 Christiano Morrison R.N. Medication Administered: FAMOTIDINE [IVPB], Dose: 20 mg IVPB over 30 minute(s), Rate: 100 mL/hr, Dispensed: 50 mL bag, Site: #1 right AC. Medication Ordered: Famotidine IV 20 mg/50mL (NOW). Given 17:05 01/31/2017 Christiano Morrison R.N. Medication Administered: TORADOL [IVP], Dose: 30 mg IVP over 2 minute(s), Site: #1 right AC. Medication Ordered: Toradol IV 30 mg (NOW).
--- NOTE | 2017-01-31 17:31 | ED MED RECONCILIATION SUMMARY ---
Patient: ELIZA VAZQUEZ Medication Reconciliation Report [facility] VisitID: [id number] [place] [address] 31y, F Registration Date/Time: 01/31/2017 Weight: 72.5 kg Height/Length: 66 in. BMI: 25.8 ALLERGIES: Penicillins The patient's Home Medications are listed below: NONE. The source(s) of the original Home Medication information: patient The following Medications were given to the patient in the Emergency Department: IV NS IV Fluids bolus 0, then 1000 mL/hr, administered: 01/31/2017 3:42:00 PM Zofran [IVP] IVP 4 mg, administered: 01/31/2017 3:42:00 PM PHENERGAN [IVP] IVP 25 mg, administered: 01/31/2017 3:57:00 PM Famotidine [IVPB] IVPB bolus 0, then 20 mg 100 mL/hr, administered: 01/31/2017 4:34:00 PM IV NS IV Fluids bolus 0, then 1000 mL/hr, administered: 01/31/2017 4:25:00 PM Toradol [IVP] IVP 30 mg, administered: 01/31/2017 5:05:00 PM The following Medications were prescribed to the patient: Zofran (orally disintegrating tablets) 4 mg: take 1 orally every 6 hours as needed for nausea and vomiting. Dispense ten (10). No refill. Substitution is permissible. -- William Null Dr. Zantac 150 mg: take 1 orally every 12 hours. Dispense sixty (60). No refills. Substitution is permissible. -- William Null Dr.
== END 2017-01-31 17:28 | disposition home or self-care (01) ==
LOC: ED SRH 15:19
DX: E86.0 Dehydration (principal); R10.12 Left upper quadrant pain; R11.2 Nausea with vomiting, unspecified; Z88.0 Allergy status to penicillin
CPT/HCPCS: 90004; 90100; 92235; 92530; 93070; 95059

== ENCOUNTER 2017-02-27 15:50 | Emergency (ER) | payer SELFPAY ==
--- NOTE | 2017-02-27 18:35 | ED ORDER SUMMARY ---
..... Patient: ELIZA VAZQUEZ OrderSheet [facility] VisitID: [id number] [place] [address] 31y, F Registration Date/Time: 02/27/2017 ORDER SHEET Weight: 72.5 kg (stated) Allergies: Penicillins GENERAL ORDERS: CBC w Diff Urgent (16:05 02/27/2017 EKoroleva P.A.-C) (Ack 16:06 NHouse ER Tech1) (16:07 SReitz R.N.) UA-Culture if indicated Urgent (16:05 02/27/2017 EKoroleva P.A.-C) (Ack 16:06 NHouse ER Tech1) (17:47 SReitz R.N.) Urine Urgent (16:05 02/27/2017 EKoroleva P.A.-C) (Ack 16:06 NHouse ER Tech1) (17:47 SReitz R.N.) Urine Drug Screen Urgent (16:05 02/27/2017 EKoroleva P.A.-C) (Ack 16:06 NHouse ER Tech1) (17:47 SReitz R.N.) CMP Urgent (16:05 02/27/2017 EKoroleva P.A.-C) (Ack 16:06 NHouse ER Tech1) (16:07 SReitz R.N.) Lipase Urgent (17:16 02/27/2017 EKoroleva P.A.-C) (17:19 NHouse ER Tech1) MEDICATION ORDERS: Phenergan IV 12.5 mg (HIGH ALERT MEDICATION, NOW) (16:09 02/27/2017 EKoroleva P.A.-C) (Ack 16:10 SReitz R.N.) (16:23 SReitz R.N.) Macrobid PO 100 mg (NOW) (18:33 02/27/2017 EKoroleva P.A.-C) (Ack 18:35 SReitz R.N.) (18:38 SReitz R.N.) IV FLUIDS: IV NS : initial bolus 1000 mL (1000 mL/hr), then 1000 mL/hr for X1 (NOW); Jalen (16:04 02/27/2017 EKoroleva P.A.-C) (Ack 16:05 SReitz R.N.) (16:08 SReitz R.N.) Benadryl IV 50 mg (NOW) (16:09 02/27/2017 EKoroleva P.A.-C) (Ack 16:10 SReitz R.N.) (16:17 SReitz R.N.) Zofran IV 8 mg (NOW) (16:09 02/27/2017 EKoroleva P.A.-C) (Ack 16:10 SReitz R.N.) (16:21 SReitz R.N.) Toradol IV 30 mg (NOW) (16:09 02/27/2017 EKoroleva P.A.-C) (Ack 16:10 SReitz R.N.) (16:24 SReitz R.N.) Haldol IV 3 mg (HIGH ALERT MEDICATION, NOW) (16:09 02/27/2017 EKoroleva P.A.-C) (Ack 16:10 SReitz R.N.) (16:26 SReitz R.N.) ORDER SHEET NOTES: [Electronically signed by Vania Subramanian-Bre (18:43 02/27/2017)] [Electronically signed by Beatrice Bowman R.N. (18:45 02/27/2017)] [Electronically locked/signed by Beatrice Bowman R.N. (18:45 02/27/2017)]
--- NOTE | 2017-02-27 18:35 | ED CLINICAL REPORT ---
Clinical Report - Physicians/Mid Levels [facility] [address] [place] [address] 02/27/2017 15:51 Patient: ELIZA VAZQUEZ Time Seen: 16:08 Feb 27 2017. Arrived- By private vehicle. Historian- patient. HISTORY OF PRESENT ILLNESS Chief Complaint: VOMITING and DIARRHEA. This started 3 days [employer] and is still present. The patient has had nausea, vomiting and diarrhea. No black stools. (Patient reports onset of vomiting and diarrhea and abdominal pain over the last 3 days. Patient reports history of similar. Patient reports out of insurance, does not have a primary care provider. Patient reports previous endoscopy, which was unremarkable. Denies any fevers or chills. Patient denies any new medications. Patient denies any sick contacts.). REVIEW OF SYSTEMS No fever, difficulty with urination or chest pain. All systems otherwise negative, except as recorded above. PAST HISTORY Problems: Sick Contact. Cyclic Vomiting. Abnormal Test. Anxiety Reaction. Abnormal Liver Function Test. Pseudoseizure. Substance Abuse. Nausea. Seizure. Ovarian Cyst. Abdominal Pain. Vomiting. Seizure Disorder. Immunizations. Cervical Radiculopathy. LNMP - Last Normal Menstrual Period. Additional Surgeries: Appendectomy. Previous Abdominal Surgery. Medications: None. Allergies: Penicillins. SOCIAL HISTORY Never smoker. History of drug use: marijuana. ADDITIONAL NOTES The nursing notes have been reviewed. PHYSICAL EXAM Vital Signs: 02/27/2017 16:00 BP: 133/76. HR: 73. RR: 16. O2 saturation: 99%. Temp: 98.7 F. Appearance: Alert. Appears to be in pain. Patient in mild distress. Eyes: Eyes normal inspection. ENT: Ears normal. Nose normal. CVS: Normal heart rate and rhythm. Heart sounds normal. Respiratory: No respiratory distress. Abdomen: Mild tenderness diffusely. No guarding or Woods's sign present. Neuro: Oriented X 3. LABS, X-RAYS, AND EKG Laboratory Tests: UA-Culture if indicated: (ABY: 02/27/2017 17:40) ( MsgRcvd 02/27/2017 18:25) Final results Test Result Flag Units (Reference) URINE COLOR MARIE URINE APPEARANCE CLEAR URINE GLUCOSE NEGATIVE (NEGATIVE) URINE BILIRUBIN NEGATIVE (NEGATIVE) URINE KETONE NEGATIVE (NEGATIVE) URINE SPECIFIC GRAVITY 1.025 (1.010-1.030) URINE PH 6.0 (5.0-8.0) URINE PROTEIN 1+ (NEGATIVE) URINE UROBILINOGEN 2.0 EU/dL (0.2-1.0) The urobilinogen reagent area may react with interferingsubstances known to react with [employer]'s reagent such asp-aminosalicylic acid and sulfonamides. Atypical colorreactions may be obtained in the presence of highconcentrations of p-aminobenzoic acid. The absence ofurobilinogen cannot be determined with this test. URINE NITRITE NEGATIVE (NEGATIVE) URINE BLOOD NEGATIVE (NEGATIVE) URINE LEUK ESTERASE NEGATIVE (NEGATIVE) URINE RBC NONE SEEN rbc/hpf (0-1) URINE WBC 1-3 wbc/hpf (0-1) URINE EPITHELIAL CELLS 3-5 EPI/hpf (0-5) URINE BACTERIA MODERATE (2+ TO 3+) (NONE SEEN) URINE COMMENT CULTURE INDICATED 3+ MUCUSURINE CULTURES ARE SET-UP BASED ON THE FOLLOWING CRITERIA:POSITIVE NITRITEPOSITIVE LEUKOCYTE ESTERASEGREATER THAN 10 WHITE BLOOD CELLSMODERATE (2+) OR GREATER BACTERIA Urine: (ABY: 02/27/2017 17:40) ( [facility] 02/27/2017 18:00) Final results Test Result Flag Units (Reference) URINE NEGATIVE CBC w Diff: (ABY: 02/27/2017 16:10) ( [facility] 02/27/2017 16:31) Final results Test Result Flag Units (Reference) WHITE BLOOD COUNT 10.1 K/uL (4.5-11.5) RED BLOOD COUNT 4.76 M/uL (4.00-5.20) HEMOGLOBIN 13.7 gm/dL (12.0-16.0) HEMATOCRIT 41.0 % (36.0-46.0) MEAN CELL VOLUME 86 fL (80-100) MEAN CORPUSCULAR HGB 29 pg (26-34) MEAN CORPUSCULAR HGB CONC 33 g/dL (31-37) RED CELL DISTRIBUTION WIDTH 13.9 % (11.6-14.8) PLATELET COUNT 380 K/uL (150-400) NEUTROPHIL % 84.7 H % (50-75) LYMPH % 11.1 L % (25-40) MONO % 4.1 % (3-14) EOSINOPHIL % 0 % (0-4) BASOPHIL % 0.1 % (0-2) Lipase: (ABY: 02/27/2017 16:30) ( [facility] 02/27/2017 17:33) Final results Test Result Flag Units (Reference) LIPASE 89 U/L (73-393) Urine Drug Screen: (ABY: 02/27/2017 17:40) ( [facility] 02/27/2017 18:16) Final results Test Result Flag Units (Reference) AMPHETAMINE/METHAMPHETAMINE NEGATIVE (NEGATIVE) BARBITURATE NEGATIVE (NEGATIVE) BENZODIAZEPINE NEGATIVE (NEGATIVE) CANNABINOID POSITIVE H (NEGATIVE) COCAINE NEGATIVE (NEGATIVE) ECSTASY NEGATIVE (NEGATIVE) METHADONE NEGATIVE (NEGATIVE) OPIATE POSITIVE H (NEGATIVE) The urine drug screen is a qualitative screening test fordrug overdose and abuse. All screen results should beconsidered as presumptive.Drugs screened for are as follows:BenzodiazepinesCocaineAmphetamines/MetamphetaminesTHC (Tetrahydrocannabinol)OpiatesBarbituratesEcstasyMethadonePositive results are unconfirmed. For confirmation, notifythe lab for the specimen to be sent to the reference lab.All confirmations must be performed by a differentmethodology.The ingestion of natural herbal and plant productscontaining Ephedra/Ephedra metabolites can produce in urineone or more substances capable of cross reacting withamphetamine/methamphetamine immunoassays. These testsprovide a preliminary result only. A more specificalternative chemical method must be used to obtain aconfirmed analytical result. CMP: (ABY: 02/27/2017 16:10) ( [facility] 02/27/2017 17:22) Final results Test Result Flag Units (Reference) GLUCOSE 119 H mg/dL (70-110) BUN 12 mg/dL (7-18) CREATININE 0.8 mg/dL (0.6-1.3) Estimated GFR >60 mL/min Estimated GFR- >60 mL/min Note: Persistent reduction over 3 months in eGFR<60 mL/min/1.73 m2 defines CKD. Patients with eGFR values>=60 mL/min/1.73 m2 may also have CKD if evidence ofpersistent proteinuria. Additional information may be foundat www.kidney.org. SODIUM 141 mmol/L (136-145) POTASSIUM 3.2 L mmol/L (3.5-5.1) CHLORIDE 103 mmol/L (98-107) CARBON DIOXIDE 25 mmol/L (21-32) CALCIUM 8.7 mg/dL (8.5-10.1) TOTAL PROTEIN 8.0 g/dL (6.4-8.2) ALBUMIN 4.2 g/dL (3.3-5.0) BILIRUBIN, TOTAL 1.0 mg/dL (0.0-1.0) ALKALINE PHOSPHATASE 69 U/L (46-116) AST (SGOT) 20 U/L (15-37) ALT (SGPT) 23 U/L (12-78) . PROGRESS AND PROCEDURES Course of Care: Patient able to tolerate by mouth sips. CBC unremarkable, signs of likely early cystitis. No CVA tenderness. Patient afebrile. Signs of small amount of hypokalemia, patient will be treated for such as well. Patient otherwise stable. Patient with no signs of acute surgical abdomen. This is a recurrent problem, patient urged to follow up with GI as well as her primary care provider. 02/27/2017 18:39 BP: 131/71. HR: 64. RR: 16. O2 saturation: 100%. Temp: 98.6 F. Sequeira-Angelo pain scale: 4/10. Patient is stable. Patient/family counseled. Differential Diagnosis: I considered gastritis, gastroenteritis, peptic ulcer disease, gastroesophageal reflux disease, acute appendicitis, diverticulitis, small bowel obstruction, gallbladder disease, liver disease, pancreatic disease, biliary colic, hepatitis, splenic disease, splenic injury, abdominal pathology, intraabdominal abscess, urologic or gynecologic causes, urinary tract infection, cystitis, ovarian cyst, pelvic inflammatory disease, abdominal aortic aneurysm and diabetic ketoacidosis as a possible cause of abdominal pain in this patient. This is a partial list of diagnoses considered. Disposition: Discharged. Condition: good. CLINICAL IMPRESSION Vomiting with nausea. Chronic abdominal pain. Urinary tract infection. Hypokalemia INSTRUCTIONS Drink plenty of fluids. Prescription Medications: Zofran (orally disintegrating tablets) 4 mg: take 1 orally for 3 days. Dispense ten (10). No refill. Substitution is permissible. Macrobid 100 mg: Take 1 capsule orally every 12 hours for 7 days. No refills. Substitution is permissible. Klor-Con 10 mEq: take 1 tablet orally every 8 hours. Dispense fifteen (15). No refills. Substitution is permissible. OTC Medications: Benadryl Allergy 25 mg (available over the counter): take 1-2 orally for 3 days. Dispense fifteen (15). No refill. Substitution is permissible. Follow-up: Follow up with your doctor in three days. Understanding of the discharge instructions verbalized. (Electronically signed by Vania Subramanian P.A.-C 02/27/2017 18:43)
--- NOTE | 2017-02-27 18:35 | ED CLINICAL REPORT ---
Clinical Report - Physicians/Mid Levels [facility] [address] [place] [address] 02/27/2017 15:51 Patient: ELIZA VAZQUEZ Time Seen: 16:08 Feb 27 2017. Arrived- By private vehicle. Historian- patient. HISTORY OF PRESENT ILLNESS Chief Complaint: VOMITING and DIARRHEA. This started 3 days [employer] and is still present. The patient has had nausea, vomiting and diarrhea. No black stools. (Patient reports onset of vomiting and diarrhea and abdominal pain over the last 3 days. Patient reports history of similar. Patient reports out of insurance, does not have a primary care provider. Patient reports previous endoscopy, which was unremarkable. Denies any fevers or chills. Patient denies any new medications. Patient denies any sick contacts.). REVIEW OF SYSTEMS No fever, difficulty with urination or chest pain. All systems otherwise negative, except as recorded above. PAST HISTORY Problems: Sick Contact. Cyclic Vomiting. Abnormal Test. Anxiety Reaction. Abnormal Liver Function Test. Pseudoseizure. Substance Abuse. Nausea. Seizure. Ovarian Cyst. Abdominal Pain. Vomiting. Seizure Disorder. Immunizations. Cervical Radiculopathy. LNMP - Last Normal Menstrual Period. Additional Surgeries: Appendectomy. Previous Abdominal Surgery. Medications: None. Allergies: Penicillins. SOCIAL HISTORY Never smoker. History of drug use: marijuana. ADDITIONAL NOTES The nursing notes have been reviewed. PHYSICAL EXAM Vital Signs: 02/27/2017 16:00 BP: 133/76. HR: 73. RR: 16. O2 saturation: 99%. Temp: 98.7 F. Appearance: Alert. Appears to be in pain. Patient in mild distress. Eyes: Eyes normal inspection. ENT: Ears normal. Nose normal. CVS: Normal heart rate and rhythm. Heart sounds normal. Respiratory: No respiratory distress. Abdomen: Mild tenderness diffusely. No guarding or Woods's sign present. Neuro: Oriented X 3. LABS, X-RAYS, AND EKG Laboratory Tests: UA-Culture if indicated: (ABY: 02/27/2017 17:40) ( MsgRcvd 02/27/2017 18:25) Final results Test Result Flag Units (Reference) URINE COLOR MARIE URINE APPEARANCE CLEAR URINE GLUCOSE NEGATIVE (NEGATIVE) URINE BILIRUBIN NEGATIVE (NEGATIVE) URINE KETONE NEGATIVE (NEGATIVE) URINE SPECIFIC GRAVITY 1.025 (1.010-1.030) URINE PH 6.0 (5.0-8.0) URINE PROTEIN 1+ (NEGATIVE) URINE UROBILINOGEN 2.0 EU/dL (0.2-1.0) The urobilinogen reagent area may react with interferingsubstances known to react with [employer] reagent such asp-aminosalicylic acid and sulfonamides. Atypical colorreactions may be obtained in the presence of highconcentrations of p-aminobenzoic acid. The absence ofurobilinogen cannot be determined with this test. URINE NITRITE NEGATIVE (NEGATIVE) URINE BLOOD NEGATIVE (NEGATIVE) URINE LEUK ESTERASE NEGATIVE (NEGATIVE) URINE RBC NONE SEEN rbc/hpf (0-1) URINE WBC 1-3 wbc/hpf (0-1) URINE EPITHELIAL CELLS 3-5 EPI/hpf (0-5) URINE BACTERIA MODERATE (2+ TO 3+) (NONE SEEN) URINE COMMENT CULTURE INDICATED 3+ MUCUSURINE CULTURES ARE SET-UP BASED ON THE FOLLOWING CRITERIA:POSITIVE NITRITEPOSITIVE LEUKOCYTE ESTERASEGREATER THAN 10 WHITE BLOOD CELLSMODERATE (2+) OR GREATER BACTERIA Urine: (ABY: 02/27/2017 17:40) ( [facility] 02/27/2017 18:00) Final results Test Result Flag Units (Reference) URINE NEGATIVE CBC w Diff: (ABY: 02/27/2017 16:10) ( [facility] 02/27/2017 16:31) Final results Test Result Flag Units (Reference) WHITE BLOOD COUNT 10.1 K/uL (4.5-11.5) RED BLOOD COUNT 4.76 M/uL (4.00-5.20) HEMOGLOBIN 13.7 gm/dL (12.0-16.0) HEMATOCRIT 41.0 % (36.0-46.0) MEAN CELL VOLUME 86 fL (80-100) MEAN CORPUSCULAR HGB 29 pg (26-34) MEAN CORPUSCULAR HGB CONC 33 g/dL (31-37) RED CELL DISTRIBUTION WIDTH 13.9 % (11.6-14.8) PLATELET COUNT 380 K/uL (150-400) NEUTROPHIL % 84.7 H % (50-75) LYMPH % 11.1 L % (25-40) MONO % 4.1 % (3-14) EOSINOPHIL % 0 % (0-4) BASOPHIL % 0.1 % (0-2) Lipase: (ABY: 02/27/2017 16:30) ( [facility] 02/27/2017 17:33) Final results Test Result Flag Units (Reference) LIPASE 89 U/L (73-393) Urine Drug Screen: (ABY: 02/27/2017 17:40) ( [facility] 02/27/2017 18:16) Final results Test Result Flag Units (Reference) AMPHETAMINE/METHAMPHETAMINE NEGATIVE (NEGATIVE) BARBITURATE NEGATIVE (NEGATIVE) BENZODIAZEPINE NEGATIVE (NEGATIVE) CANNABINOID POSITIVE H (NEGATIVE) COCAINE NEGATIVE (NEGATIVE) ECSTASY NEGATIVE (NEGATIVE) METHADONE NEGATIVE (NEGATIVE) OPIATE POSITIVE H (NEGATIVE) The urine drug screen is a qualitative screening test fordrug overdose and abuse. All screen results should beconsidered as presumptive.Drugs screened for are as follows:BenzodiazepinesCocaineAmphetamines/MetamphetaminesTHC (Tetrahydrocannabinol)OpiatesBarbituratesEcstasyMethadonePositive results are unconfirmed. For confirmation, notifythe lab for the specimen to be sent to the reference lab.All confirmations must be performed by a differentmethodology.The ingestion of natural herbal and plant productscontaining Ephedra/Ephedra metabolites can produce in urineone or more substances capable of cross reacting withamphetamine/methamphetamine immunoassays. These testsprovide a preliminary result only. A more specificalternative chemical method must be used to obtain aconfirmed analytical result. CMP: (ABY: 02/27/2017 16:10) ( [facility] 02/27/2017 17:22) Final results Test Result Flag Units (Reference) GLUCOSE 119 H mg/dL (70-110) BUN 12 mg/dL (7-18) CREATININE 0.8 mg/dL (0.6-1.3) Estimated GFR >60 mL/min Estimated GFR- >60 mL/min Note: Persistent reduction over 3 months in eGFR<60 mL/min/1.73 m2 defines CKD. Patients with eGFR values>=60 mL/min/1.73 m2 may also have CKD if evidence ofpersistent proteinuria. Additional information may be foundat www.kidney.org. SODIUM 141 mmol/L (136-145) POTASSIUM 3.2 L mmol/L (3.5-5.1) CHLORIDE 103 mmol/L (98-107) CARBON DIOXIDE 25 mmol/L (21-32) CALCIUM 8.7 mg/dL (8.5-10.1) TOTAL PROTEIN 8.0 g/dL (6.4-8.2) ALBUMIN 4.2 g/dL (3.3-5.0) BILIRUBIN, TOTAL 1.0 mg/dL (0.0-1.0) ALKALINE PHOSPHATASE 69 U/L (46-116) AST (SGOT) 20 U/L (15-37) ALT (SGPT) 23 U/L (12-78) . PROGRESS AND PROCEDURES Course of Care: Patient able to tolerate by mouth sips. CBC unremarkable, signs of likely early cystitis. No CVA tenderness. Patient afebrile. Signs of small amount of hypokalemia, patient will be treated for such as well. Patient otherwise stable. Patient with no signs of acute surgical abdomen. This is a recurrent problem, patient urged to follow up with GI as well as her primary care provider. 02/27/2017 18:39 BP: 131/71. HR: 64. RR: 16. O2 saturation: 100%. Temp: 98.6 F. Sequeira-Angelo pain scale: 4/10. Patient is stable. Patient/family counseled. Differential Diagnosis: I considered gastritis, gastroenteritis, peptic ulcer disease, gastroesophageal reflux disease, acute appendicitis, diverticulitis, small bowel obstruction, gallbladder disease, liver disease, pancreatic disease, biliary colic, hepatitis, splenic disease, splenic injury, abdominal pathology, intraabdominal abscess, urologic or gynecologic causes, urinary tract infection, cystitis, ovarian cyst, pelvic inflammatory disease, abdominal aortic aneurysm and diabetic ketoacidosis as a possible cause of abdominal pain in this patient. This is a partial list of diagnoses considered. Disposition: Discharged. Condition: good. CLINICAL IMPRESSION Vomiting with nausea. Chronic abdominal pain. Urinary tract infection. Hypokalemia INSTRUCTIONS Drink plenty of fluids. Prescription Medications: Zofran (orally disintegrating tablets) 4 mg: take 1 orally for 3 days. Dispense ten (10). No refill. Substitution is permissible. Macrobid 100 mg: Take 1 capsule orally every 12 hours for 7 days. No refills. Substitution is permissible. Klor-Con 10 mEq: take 1 tablet orally every 8 hours. Dispense fifteen (15). No refills. Substitution is permissible. OTC Medications: Benadryl Allergy 25 mg (available over the counter): take 1-2 orally for 3 days. Dispense fifteen (15). No refill. Substitution is permissible. Follow-up: Follow up with your doctor in three days. Understanding of the discharge instructions verbalized. (Electronically signed by Vania Subramanian P.A.-C 02/27/2017 18:43)
--- NOTE | 2017-02-27 18:35 | ED ORDER SUMMARY ---
..... Patient: ELIZA VAZQUEZ OrderSheet [facility] VisitID: [id number] [place] [address] 31y, F Registration Date/Time: 02/27/2017 ORDER SHEET Weight: 72.5 kg (stated) Allergies: Penicillins GENERAL ORDERS: CBC w Diff Urgent (16:05 02/27/2017 EKoroleva P.A.-C) (Ack 16:06 NHouse ER Tech1) (16:07 SReitz R.N.) UA-Culture if indicated Urgent (16:05 02/27/2017 EKoroleva P.A.-C) (Ack 16:06 NHouse ER Tech1) (17:47 SReitz R.N.) Urine Urgent (16:05 02/27/2017 EKoroleva P.A.-C) (Ack 16:06 NHouse ER Tech1) (17:47 SReitz R.N.) Urine Drug Screen Urgent (16:05 02/27/2017 EKoroleva P.A.-C) (Ack 16:06 NHouse ER Tech1) (17:47 SReitz R.N.) CMP Urgent (16:05 02/27/2017 EKoroleva P.A.-C) (Ack 16:06 NHouse ER Tech1) (16:07 SReitz R.N.) Lipase Urgent (17:16 02/27/2017 EKoroleva P.A.-C) (17:19 NHouse ER Tech1) MEDICATION ORDERS: Phenergan IV 12.5 mg (HIGH ALERT MEDICATION, NOW) (16:09 02/27/2017 EKoroleva P.A.-C) (Ack 16:10 SReitz R.N.) (16:23 SReitz R.N.) Macrobid PO 100 mg (NOW) (18:33 02/27/2017 EKoroleva P.A.-C) (Ack 18:35 SReitz R.N.) (18:38 SReitz R.N.) IV FLUIDS: IV NS : initial bolus 1000 mL (1000 mL/hr), then 1000 mL/hr for X1 (NOW); Jalen (16:04 02/27/2017 EKoroleva P.A.-C) (Ack 16:05 SReitz R.N.) (16:08 SReitz R.N.) Benadryl IV 50 mg (NOW) (16:09 02/27/2017 EKoroleva P.A.-C) (Ack 16:10 SReitz R.N.) (16:17 SReitz R.N.) Zofran IV 8 mg (NOW) (16:09 02/27/2017 EKoroleva P.A.-C) (Ack 16:10 SReitz R.N.) (16:21 SReitz R.N.) Toradol IV 30 mg (NOW) (16:09 02/27/2017 EKoroleva P.A.-C) (Ack 16:10 SReitz R.N.) (16:24 SReitz R.N.) Haldol IV 3 mg (HIGH ALERT MEDICATION, NOW) (16:09 02/27/2017 EKoroleva P.A.-C) (Ack 16:10 SReitz R.N.) (16:26 SReitz R.N.) ORDER SHEET NOTES: [Electronically signed by Vania Subramanian-Bre (18:43 02/27/2017)] [Electronically signed by Beatrice Bowman R.N. (18:45 02/27/2017)] [Electronically locked/signed by Beatrice Bowman R.N. (18:45 02/27/2017)]
--- NOTE | 2017-02-27 18:35 | ED NURSING NOTES ---
Clinical Report - Nurses [facility] [place] [address] 02/27/2017 15:51 Patient: ELIZA VAZQUEZ TRIAGE Triage time 16:00. Acuity: LEVEL 3. Chief Complaint: ABDOMINAL PAIN, VOMITING and DIARRHEA. Alert. SEPSIS SCREEN: Sepsis Screen. Negative (no infection suspected/documented). MICHELA COMA SCORE: Michela Coma Scale: 15- eyes open spontaneously (4); best verbal response- oriented x 4 (5); best motor response- obeys commands (6). --16:04 Beatrice Bowman R.N. 16:00 02/27/17. BP: 133/76. HR: 73. RR: 16. O2 saturation: 99%. Temp: 98.7 F. Pain level now 9/10. --16:04 Beatrice Bowman R.N. Weight: 72.5 kg stated. Height/Length: 66 inches Per Patient. BMI: 25.8. --16:03 Beatrice Bowman R.N. Medications None. --16:04 Beatrice Bowman R.N. Allergies Penicillins. --16:04 Beatrice Bowman R.N. History Arrived by private vehicle. Historian: patient. Accompanied by (mary). Primary physician (Dr. Beverly). Onset. (3 days ago). Treatment GAS WORKER: None. PAST MEDICAL HX: Immunizations: up-to-date. Uses an intrauterine device. SOCIAL HX: Never smoker. History of drug use: marijuana. ("sometimes"). No alcohol use. No recent travel. No known contact with a sick individual. ABUSE ASSESSMENT: No report of abuse. NUTRITIONAL RISK ASSESSMENT: The nutritional risk assessment revealed no deficiencies. FUNCTIONAL ASSESSMENT: Functional assessment: no impairments noted. LEARNING NEEDS ASSESSMENT: The learning needs assessment revealed no barriers. --16:04 Beatrice Bowman R.N. PROBLEMS: Cyclic Vomiting. Abnormal Test. Anxiety Reaction. Abnormal Liver Function Test. Pseudoseizure. Substance Abuse. Nausea. Seizure. Ovarian Cyst. Abdominal Pain. Vomiting. Seizure Disorder. Cervical Radiculopathy. --16:04 Beatrice Bowman R.N. ADDITIONAL SURGERIES: Appendectomy. Previous Abdominal Surgery. --16:04 Beatrice Bowman R.N. Interventions ID band on patient. Transported via wheelchair. --16:04 Beatrice Bowman R.N. PHYSICAL ASSESSMENT To room via wheelchair. GENERAL / NEURO / PSYCH: Alert. Oriented X 4. Appears in no acute distress. HEENT: Mucous membranes are pink. RESPIRATORY: Respirations not labored. CVS: Capillary refill less than 2 seconds. GI / : Abdomen soft. Abdominal tenderness in the periumbilical area. SKIN: Skin is warm and dry. --16:05 Beatrice Bowman R.N. NURSING PROGRESS NOTES Patient gowned. Head of bed elevated. Two patient identifiers checked. Call light placed in reach. Side rails up x 2. Bed placed in lowest position. Brakes of bed on. Patient ready for evaluation- chart flagged. --16:05 Beatrice Bowman R.N. 16:02/27/2017 Site #1 started via IV in the right antecubital space with an 20g angiocath, with aseptic technique and good blood return; one attempt. Blood drawn: rainbow set. Labeled in the presence of the patient and sent to the lab. Saline lock flushed with 10 mL saline (Accessed by PRIYA Martinez). --16:05 Beatrice Bowman R.N. 16:02/27/2017 Started bag #1 1000 mL IV Fluids IV NS (Saline); at 1000 mL/hr over 1 hour(s) via site #1 via IV pump. Allergies verified and confirmed 5 rights. IV patency established. IV site checked: no pain, redness, or swelling. IV flushed thoroughly pre- and post-medication administration. --16:08 Beatrice Bowman R.N. 16:02/27/2017 Benadryl (DiphenhydrAMINE HCl) IVP 50 mg given over 2 minute(s) via site #1. Allergies verified, confirmed 5 rights and sedative warning given to the patient. IV patency established. IV site checked: no pain, redness, or swelling. IV flushed thoroughly pre- and post-medication administration. --16:17 Beatrice Bowman R.N. 16:19 02/27/2017 Zofran (Ondansetron HCl) IVP 8 mg given over 2 minute(s) via site #1. Allergies verified and confirmed 5 rights. IV patency established. IV site checked: no pain, redness, or swelling. IV flushed thoroughly pre- and post-medication administration. --16:21 Beatrice Bowman R.N. 16:23 02/27/2017 PHENERGAN (Promethazine HCl) IVP 12.5 mg given over 1 minute(s) via site #1. Allergies verified and confirmed 5 rights. IV patency established. IV site checked: no pain, redness, or swelling. IV flushed thoroughly pre- and post-medication administration. --16:23 Beatrice Bowman R.N. 16:24 02/27/2017 Toradol IVP 30 mg given over 1 minute(s) via site #1. Allergies verified and confirmed 5 rights. IV patency established. IV site checked: no pain, redness, or swelling. IV flushed thoroughly pre- and post-medication administration. --16:24 Beatrice Bowman R.N. 16:26 02/27/2017 HALDOL (Haloperidol Lactate) IVP 3 mg given over 2 minute(s) via site #1. Allergies verified, confirmed 5 rights and sedative warning given to the patient. IV patency established. IV site checked: no pain, redness, or swelling. IV flushed thoroughly pre- and post-medication administration. --16:26 Beatrice Bowman R.N. 16:28 02/27/17. BP: 144/94. HR: 90. RR: 16. O2 saturation: 99%. --16:28 Beatrice Bowman R.N. ( lab at the bedside for re-draw.). --16:29 Beatrice Bowman R.N. Reassessment after medication administered. She has had no adverse reaction. Overall patient status- she states feels better. --16:52 Beatrice Bowman R.N. ( Pt's eyes closed and it moving her arms and legs; shaking. Called pt's name, no response. Pt. answered after calling her name three times and states, "what just happened." Pt. is also tearful and states, "I can't stop moving, I just want to get comfortable." Provider notified no new orders at this time.). --17:47 Beatrice Bowman R.N. Patient ID band checked for patient name, birthdate and medical record number: patient confirmed. Instructions provided to collect clean catch urine and patient verbalized understanding. Clean catch urine collected with return of yellow-colored clear urine; sample sent to lab for urinalysis. Specimen labeled in the presence of the patient. --17:47 Beatrice Bowman R.N. 18:21 02/27/17. BP: 110/60. HR: 70. RR: 16. O2 saturation: 99%. --18:21 Beatrice Bowman R.N. Patient and family informed about reason for wait. --18:21 Beatrice Bowman R.N. 18:21 02/27/2017 IV Fluids IV NS Discontinued: bag #1 infused. Total amount infused: 1000 mL. IV patency established. IV site checked: no pain, redness, or swelling. IV flushed thoroughly. --18:21 Beatrice Bowman R.N. 18:22 02/27/2017 Started bag #2 1000 mL IV Fluids IV NS (Saline); at 1000 mL/hr over 1 hour(s) via site #1 via IV pump. Allergies verified and confirmed 5 rights. IV patency established. IV site checked: no pain, redness, or swelling. IV flushed thoroughly pre- and post-medication administration. --18:22 Beatrice Bowman R.N. 18:38 02/27/2017 Macrobid PO 100 mg given. Allergies verified and confirmed 5 rights. --18:38 Beatrice Bowman R.N. 18:38 02/27/2017 IV Fluids IV NS Discontinued: bag #2 infused. Total amount infused: 100 mL. IV patency established. IV site checked: no pain, redness, or swelling. IV flushed thoroughly. --18:38 Beatrice Bowman R.N. DISPOSITION / DISCHARGE 18:39 02/27/17. BP: 131/71. HR: 64. RR: 16. O2 saturation: 100%. Temp: 98.6 FYe SequeiraAngelo pain scale: 01/15. --18:39 Beatrice Bowman R.N. 18:39 02/27/2017 Site #1 removed upon discharge. Catheter intact. Manual pressure and bandaid applied. --18:39 Beatrice Bowman R.N. 18:44. Condition at departure: stable. No learning barriers present. Discharge instructions provided and reviewed with the patient. Reviewed medication(s) side effects, precautions, dosing and course information. Prescription(s) given to the patient. Reviewed referral to family practice for followup. Patient verbalized understanding. Written instructions provided in [place]. The patient was discharged home and accompanied by small order cutter. She left the Emergency Department ambulatory and via private vehicle. Electrical Accessories I Assembler driving. Medication list reviewed and validated. --18:44 Beatrice Bowman R.N. Departure time: 18:45. --18:45 Beatrice Bowman R.N. Locked/Released at 02/27/2017 18:45 by Beatrice Bowman R.N.
--- NOTE | 2017-02-27 18:35 | ED NURSING NOTES ---
Clinical Report - Nurses [facility] [place] [address] 02/27/2017 15:51 Patient: ELIZA VAZQUEZ TRIAGE Triage time 16:00. Acuity: LEVEL 3. Chief Complaint: ABDOMINAL PAIN, VOMITING and DIARRHEA. Alert. SEPSIS SCREEN: Sepsis Screen. Negative (no infection suspected/documented). MICHELA COMA SCORE: Michela Coma Scale: 15- eyes open spontaneously (4); best verbal response- oriented x 4 (5); best motor response- obeys commands (6). --16:04 Beatrice Bowman R.N. 16:00 02/27/17. BP: 133/76. HR: 73. RR: 16. O2 saturation: 99%. Temp: 98.7 F. Pain level now 9/10. --16:04 Beatrice Bowman R.N. Weight: 72.5 kg stated. Height/Length: 66 inches Per Patient. BMI: 25.8. --16:03 Beatrice Bowman R.N. Medications None. --16:04 Beatrice Bowman R.N. Allergies Penicillins. --16:04 Beatrice Bowman R.N. History Arrived by private vehicle. Historian: patient. Accompanied by (mary). Primary physician (Dr. Beverly). Onset. (3 days ago). Treatment DRAWING IN HAND: None. PAST MEDICAL HX: Immunizations: up-to-date. Uses an intrauterine device. SOCIAL HX: Never smoker. History of drug use: marijuana. ("sometimes"). No alcohol use. No recent travel. No known contact with a sick individual. ABUSE ASSESSMENT: No report of abuse. NUTRITIONAL RISK ASSESSMENT: The nutritional risk assessment revealed no deficiencies. FUNCTIONAL ASSESSMENT: Functional assessment: no impairments noted. LEARNING NEEDS ASSESSMENT: The learning needs assessment revealed no barriers. --16:04 Beatrice Bowman R.N. PROBLEMS: Cyclic Vomiting. Abnormal Test. Anxiety Reaction. Abnormal Liver Function Test. Pseudoseizure. Substance Abuse. Nausea. Seizure. Ovarian Cyst. Abdominal Pain. Vomiting. Seizure Disorder. Cervical Radiculopathy. --16:04 Beatrice Bowman R.N. ADDITIONAL SURGERIES: Appendectomy. Previous Abdominal Surgery. --16:04 Beatrice Bowman R.N. Interventions ID band on patient. Transported via wheelchair. --16:04 Beatrice Bowman R.N. PHYSICAL ASSESSMENT To room via wheelchair. GENERAL / NEURO / PSYCH: Alert. Oriented X 4. Appears in no acute distress. HEENT: Mucous membranes are pink. RESPIRATORY: Respirations not labored. CVS: Capillary refill less than 2 seconds. GI / : Abdomen soft. Abdominal tenderness in the periumbilical area. SKIN: Skin is warm and dry. --16:05 Beatrice Bowman R.N. NURSING PROGRESS NOTES Patient gowned. Head of bed elevated. Two patient identifiers checked. Call light placed in reach. Side rails up x 2. Bed placed in lowest position. Brakes of bed on. Patient ready for evaluation- chart flagged. --16:05 Beatrice Bowman R.N. 16:02/27/2017 Site #1 started via IV in the right antecubital space with an 20g angiocath, with aseptic technique and good blood return; one attempt. Blood drawn: rainbow set. Labeled in the presence of the patient and sent to the lab. Saline lock flushed with 10 mL saline (Accessed by PRIYA Martinez). --16:05 Beatrice Bowman R.N. 16:02/27/2017 Started bag #1 1000 mL IV Fluids IV NS (Saline); at 1000 mL/hr over 1 hour(s) via site #1 via IV pump. Allergies verified and confirmed 5 rights. IV patency established. IV site checked: no pain, redness, or swelling. IV flushed thoroughly pre- and post-medication administration. --16:08 Beatrice Bowman R.N. 16:02/27/2017 Benadryl (DiphenhydrAMINE HCl) IVP 50 mg given over 2 minute(s) via site #1. Allergies verified, confirmed 5 rights and sedative warning given to the patient. IV patency established. IV site checked: no pain, redness, or swelling. IV flushed thoroughly pre- and post-medication administration. --16:17 Beatrice Bowman R.N. 16:19 02/27/2017 Zofran (Ondansetron HCl) IVP 8 mg given over 2 minute(s) via site #1. Allergies verified and confirmed 5 rights. IV patency established. IV site checked: no pain, redness, or swelling. IV flushed thoroughly pre- and post-medication administration. --16:21 Beatrice Bowman R.N. 16:23 02/27/2017 PHENERGAN (Promethazine HCl) IVP 12.5 mg given over 1 minute(s) via site #1. Allergies verified and confirmed 5 rights. IV patency established. IV site checked: no pain, redness, or swelling. IV flushed thoroughly pre- and post-medication administration. --16:23 Beatrice Bowman R.N. 16:24 02/27/2017 Toradol IVP 30 mg given over 1 minute(s) via site #1. Allergies verified and confirmed 5 rights. IV patency established. IV site checked: no pain, redness, or swelling. IV flushed thoroughly pre- and post-medication administration. --16:24 Beatrice Bowman R.N. 16:26 02/27/2017 HALDOL (Haloperidol Lactate) IVP 3 mg given over 2 minute(s) via site #1. Allergies verified, confirmed 5 rights and sedative warning given to the patient. IV patency established. IV site checked: no pain, redness, or swelling. IV flushed thoroughly pre- and post-medication administration. --16:26 Beatrice Bowman R.N. 16:28 02/27/17. BP: 144/94. HR: 90. RR: 16. O2 saturation: 99%. --16:28 Beatrice Bowman R.N. ( lab at the bedside for re-draw.). --16:29 Beatrice Bowman R.N. Reassessment after medication administered. She has had no adverse reaction. Overall patient status- she states feels better. --16:52 Beatrice Bowman R.N. ( Pt's eyes closed and it moving her arms and legs; shaking. Called pt's name, no response. Pt. answered after calling her name three times and states, "what just happened." Pt. is also tearful and states, "I can't stop moving, I just want to get comfortable." Provider notified no new orders at this time.). --17:47 Beatrice Bowman R.N. Patient ID band checked for patient name, birthdate and medical record number: patient confirmed. Instructions provided to collect clean catch urine and patient verbalized understanding. Clean catch urine collected with return of yellow-colored clear urine; sample sent to lab for urinalysis. Specimen labeled in the presence of the patient. --17:47 Beatrice Bowman R.N. 18:21 02/27/17. BP: 110/60. HR: 70. RR: 16. O2 saturation: 99%. --18:21 Beatrice Bowman R.N. Patient and family informed about reason for wait. --18:21 Beatrice Bowman R.N. 18:21 02/27/2017 IV Fluids IV NS Discontinued: bag #1 infused. Total amount infused: 1000 mL. IV patency established. IV site checked: no pain, redness, or swelling. IV flushed thoroughly. --18:21 Beatrice Bowman R.N. 18:22 02/27/2017 Started bag #2 1000 mL IV Fluids IV NS (Saline); at 1000 mL/hr over 1 hour(s) via site #1 via IV pump. Allergies verified and confirmed 5 rights. IV patency established. IV site checked: no pain, redness, or swelling. IV flushed thoroughly pre- and post-medication administration. --18:22 Beatrice Bowman R.N. 18:38 02/27/2017 Macrobid PO 100 mg given. Allergies verified and confirmed 5 rights. --18:38 Beatrice Bowman R.N. 18:38 02/27/2017 IV Fluids IV NS Discontinued: bag #2 infused. Total amount infused: 100 mL. IV patency established. IV site checked: no pain, redness, or swelling. IV flushed thoroughly. --18:38 Beatrice Bowman R.N. DISPOSITION / DISCHARGE 18:39 02/27/17. BP: 131/71. HR: 64. RR: 16. O2 saturation: 100%. Temp: 98.6 FYe SequeiraAngelo pain scale: 01/15. --18:39 Beatrice Bowman R.N. 18:39 02/27/2017 Site #1 removed upon discharge. Catheter intact. Manual pressure and bandaid applied. --18:39 Beatrice Bowman R.N. 18:44. Condition at departure: stable. No learning barriers present. Discharge instructions provided and reviewed with the patient. Reviewed medication(s) side effects, precautions, dosing and course information. Prescription(s) given to the patient. Reviewed referral to family practice for followup. Patient verbalized understanding. Written instructions provided in [place]. The patient was discharged home and accompanied by maintenance of way foreman. She left the Emergency Department ambulatory and via private vehicle. [employer] driving. Medication list reviewed and validated. --18:44 Beatrice Bowman R.N. Departure time: 18:45. --18:45 Beatrice Bowman R.N. Locked/Released at 02/27/2017 18:45 by Beatrice Bowman R.N.
--- NOTE | 2017-02-27 18:46 | ED MED RECONCILIATION SUMMARY ---
Patient: ELIZA VAZQUEZ Medication Reconciliation Report [facility] VisitID: [id number] [place] [address] 31y, F Registration Date/Time: 02/27/2017 Weight: 72.5 kg Height/Length: 66 in. BMI: 25.8 ALLERGIES: Penicillins The patient's Home Medications are listed below: NONE. The source(s) of the original Home Medication information: Not obtained. The following Medications were given to the patient in the Emergency Department: IV NS IV Fluids bolus 0, then 1000 mL/hr, administered: 02/27/2017 4:08:00 PM Benadryl [IVP] IVP 50 mg, administered: 02/27/2017 4:16:00 PM Zofran [IVP] IVP 8 mg, administered: 02/27/2017 4:19:00 PM PHENERGAN [IVP] IVP 12.5 mg, administered: 02/27/2017 4:23:00 PM Toradol [IVP] IVP 30 mg, administered: 02/27/2017 4:24:00 PM HALDOL [IVP] IVP 3 mg, administered: 02/27/2017 4:26:00 PM IV NS IV Fluids bolus 0, then 1000 mL/hr, administered: 02/27/2017 6:22:00 PM Macrobid [PO] PO 100 mg, administered: 02/27/2017 6:38:00 PM The following Medications were prescribed to the patient: Zofran (orally disintegrating tablets) 4 mg: take 1 orally for 3 days. Dispense ten (10). No refill. Substitution is permissible. -- Deanneolejacinto, Vania, P.A.-C Macrobid 100 mg: Take 1 capsule orally every 12 hours for 7 days. No refills. Substitution is permissible. -- Deanneoleva, Vania, P.A.-C Klor-Con 10 mEq: take 1 tablet orally every 8 hours. Dispense fifteen (15). No refills. Substitution is permissible. -- Deanneoleva, Vania, P.A.-C Benadryl Allergy 25 mg (available over the counter): take 1-2 orally for 3 days. Dispense fifteen (15). No refill. Substitution is permissible. -- Vania Subramanian P.A.-C
--- NOTE | 2017-02-27 18:46 | ED DISCHARGE INSTRUCTIONS ---
Patient: ELIZA VAZQUEZ General Instructions [facility] VisitID: [id number] [place] [address] 31y, F Registration Date/Time: 02/27/2017 Vomiting with nausea. Chronic abdominal pain. Urinary tract infection. Hypokalemia INSTRUCTIONS Drink plenty of fluids. Prescription Medications: Zofran (orally disintegrating tablets) 4 mg: take 1 orally for 3 days. Dispense ten (10). No refill. Substitution is permissible. Macrobid 100 mg: Take 1 capsule orally every 12 hours for 7 days. No refills. Substitution is permissible. Klor-Con 10 mEq: take 1 tablet orally every 8 hours. Dispense fifteen (15). No refills. Substitution is permissible. OTC Medications: Benadryl Allergy 25 mg (available over the counter): take 1-2 orally for 3 days. Dispense fifteen (15). No refill. Substitution is permissible. Follow-up: Follow up with your doctor in three days. Understanding of the discharge instructions verbalized. ADDITIONAL INFORMATION Vomiting [6Yr-Adult] Vomiting is a common symptom that may be due to different causes. These include gastroenteritis ("stomach flu"), food poisoning and gastritis. There are other more serious causes of vomiting which may be hard to diagnose early in the illness. Therefore, it is important to watch for the warning signs listed below. The main danger from repeated vomiting is dehydration. This is due to excess loss of water and minerals from the body. When this occurs, body fluids must be replaced. Home Care: If symptoms are severe, rest at home for the next 24 hours. You may use acetaminophen (Tylenol) or ibuprofen (Motrin, Advil) to control fever, unless another medicine was prescribed. [NOTE : If you have chronic liver or kidney disease or ever had a stomach ulcer or GI bleeding, talk with your doctor before using these medicines.] (Aspirin should never be used in anyone under 18 years of age who is ill with a fever. It may cause severe liver damage.) Avoid tobacco and alcohol use, which may worsen your symptoms. If medicines for vomiting were prescribed, take as directed. Once vomiting stops, then follow these guidelines: During The First 12-24 Hours follow the diet below: FRUIT JUICES: Apple, grape juice, clear fruit drinks, and electrolyte replacement drinks. BEVERAGES: Soft drinks without caffeine; mineral water (plain or flavored), decaffeinated tea and coffee. SOUPS: Clear broth, consomm and bouillon DESSERTS: Plain gelatin, popsicles and fruit juice bars. As you feel better, you may add 6-8 ounces of yogurt per day. During The Next 24 Hours you may add the following to the above: Hot cereal, plain toast, bread, rolls, crackers Plain noodles, rice, mashed potatoes, chicken noodle or rice soup Unsweetened canned fruit (avoid pineapple), bananas Limit caffeine and chocolate. No spices or seasonings except salt. During The Next 24 Hours Gradually resume a normal diet, as you feel better and your symptoms lessen. Follow Up with your doctor as advised if you are not improving over the next 2-3 days. Get Prompt Medical Attention if any of the following occur: Constant right-sided lower abdominal pain or increasing general abdominal pain Continued vomiting (unable to keep liquids down) for 24 hours Frequent diarrhea (more than 5 times a day); blood (red or black color) or mucus in diarrhea Reduced urine output or extreme thirst Weakness, dizziness or fainting Unusually drowsy or confused Fever of 100.4F (38C) oral or higher, not better with fever medication Yellow color of the eyes or skin Abdominal Pain, Unknown Cause (Female) The exact cause of your abdominal (stomach) pain is not certain. This does not mean that this is something to worry about, or the right tests were not done. Everyone likes to know the exact cause of the problem, but sometimes with abdominal pain, there is no clear-cut cause, and this could be a good thing. The good news is that your symptoms can be treated, and you will feel better. Your condition does not seem serious now; however, sometimes the signs of a serious problem may take more time to appear. For this reason,it is important for you to watch for any new symptoms, problems,or worsening of your condition. Over the next few days, the abdominal pain may come and go, or be continuous. Other common symptoms can include nausea and vomiting. Sometimes it can be difficult to tell if you feel nauseous, you may just feel bad and not associate that feeling with nausea. Constipation, diarrhea, and a fever may go along with the pain. The pain may continue even if treated correctly over the following days. Depending on how things go, sometimes the cause can become clear and may require further or different treatment. Additional evaluations, medications, or tests may be needed. Home care Your health care provider may prescribe medications for pain, symptoms, or an infection. Follow the health care provider's instructions for taking these medications. General care Rest until your next exam. No strenuous activities. Try to find positions that ease discomfort. A small pillow placed on the abdomen may help relieve pain. Something warm on your abdomen (such as a heating pad) may help, but be careful not to burn yourself. Diet Do not force yourself to eat, especially if having cramps, vomiting, or diarrhea. Water is important so you do not get dehydrated. Soup may also be good. Sports drinks may also help, especially if they are not too acidic. Make sure you don't drink sugary drinks as this can make things worse. Take liquids in small amounts. Do not guzzle them. Caffeine sometimes makes the pain and cramping worse. Avoid dairy products if you have vomiting or diarrhea. Don't eat large amounts at a time. Wait a few minutes between bites. Eat a diet low in fiber (called a low-residue diet). Foods allowed include refined breads, white rice, fruit and vegetable juices without pulp, tender meats. These foods will pass more easily through the intestine. Avoid whole-grain foods, whole fruits and vegetables, meats, seeds and nuts, fried or fatty foods, dairy, alcohol and spicy foods until your symptoms go away. Follow-up care Follow up with your health care provider as instructed, or if your pain does not begin to improve in the next 24 hours. When to seek medical care Seek prompt medical care if any of the following occur: Pain gets worse or moves to the right lower abdomen New or worsening vomiting or diarrhea Swelling of the abdomen Unable to pass stool for more than three days Fever of 100.4F (38C) or higher, or as directed by your healthcare provider. Blood in vomit or bowel movements (dark red or black color) Jaundice (yellow color of eyes and skin) Weakness, dizziness Chest, arm, back, neck or jaw pain Unexpected vaginal bleeding or missed period Call 911 Call emergency services if any of the following occur: Trouble breathing Confusion Fainting or loss of consciousness Rapid heart rate Seizure Bladder Infection,Female (Adult) A bladder infection ("cystitis" or "UTI") usually causes a constant urge to urinate and a burning when passing urine. Urine may be cloudy, smelly or dark. There may be pain in the lower abdomen. A bladder infection occurs when bacteria from the vaginal area enter the bladder opening (urethra). This can occur from sexual intercourse, wearing tight clothing, dehydration and other factors. Home Care: Drink lots of fluids (at least 6-8 glasses a day, unless you must restrict fluids for other medical reasons). This will force the medicine into your urinary system and flush the bacteria out of your body. Avoid sexual intercourse until your symptoms are gone. Avoid caffeine, alcohol and spicy foods. These can irritate the bladder. A bladder infection is treated with antibiotics. You may also be given Pyridium (generic = phenazopyridine) to reduce the burning sensation. This medicine will cause your urine to become a bright orange color. The orange urine may stain clothing. You may wear a pad or panty-liner to protect clothing. Preventing Future Infections: Always wipe from front to back after a bowel movement. Keep the genital area clean and dry. Drink plenty of fluids each day to avoid dehydration. Both sexual partners should wash before intercourse. Urinate right after intercourse to flush out the bladder. Wear cotton underwear and cotton-lined panty hose; avoid tight-fitting pants. If you are on control pills and are having frequent bladder infections, discuss with your doctor. Follow Up: Return to this facility or see your doctor if ALL symptoms are not gone after three days of treatment. Get Prompt Medical Attention if any of the following occur: Fever of 100.4F (38C) or higher, or as directed by your healthcare provider No improvement by the third day of treatment Increasing back or abdominal pain Repeated vomiting; unable to keep medicine down Weakness, dizziness or fainting Vaginal discharge Pain, redness or swelling in the labia (outer vaginal area) Hypokalemia Hypokalemia means a low level of potassium in the blood. This most often occurs in patients who take diuretics (water pills). It can also occur due to severe vomiting or diarrhea. A mild case usually causes no symptoms. It is only found with blood testing. More severe potassium loss causes generalized weakness, muscle or abdominal cramping, heart palpitations (rapid or irregular heartbeats) and low blood pressure. Home Care: 1) Take any potassium supplements prescribed. 2) Eat foods rich in potassium. The highest amount is found in artichoke, baked potatoes, spinach, cantaloupe, honeydew melon, cod, halibut, salmon, and scallops. White, red, or llanes beans are also very good sources. A modest amount is found in orange juice, bananas, carrots, and tomato juice. 3) Certain types of diuretics (water pills), such as Lasix (furosemide), require that you take potassium supplements for as long as you take the diuretic pills. If you are taking a diuretic, discuss the need for potassium supplements with your doctor. Follow Up with your doctor for a repeat blood test within the next week or as advised by our staff. Get Prompt Medical Attention if any of the following occur: -- Increased weakness -- Feeling dizzy -- Irregular heartbeat, extra beats or very fast heart rate -- Fainting spell Ondansetron Oral disintegrating tablet What is this medicine? ONDANSETRON (on DUSTY se norma) is used to treat nausea and vomiting caused by chemotherapy. It is also used to prevent or treat nausea and vomiting after surgery. How should I use this medicine? These tablets are made to dissolve in the mouth. Do not try to push the tablet through the foil backing. With dry hands, peel away the foil backing and gently remove the tablet. Place the tablet in the mouth and allow it to dissolve, then swallow. While you may take these tablets with water, it is not necessary to do so. Talk to your personnel assistant regarding the use of this medicine in children. Special care may be needed. What side effects may I notice from receiving this medicine? Side effects that you should report to your doctor or health senior resident care director as soon as possible: allergic reactions like skin rash, itching or hives, swelling of the face, lips, or tongue breathing problems dizziness fast or irregular heartbeat feeling faint or lightheaded, falls fever and chills swelling of the hands and feet tightness in the chest Side effects that usually do not require medical attention (report to your doctor or health senior resident care director if they continue or are bothersome): constipation or diarrhea headache What may interact with this medicine? Do not take this medicine with any of the following medications: -apomorphine -cisapride -dofetilide -dronedarone -pimozide -thioridazine -ziprasidone This medicine may also interact with the following medications: -carbamazepine -phenytoin -rifampicin -tramadol -other medicines that prolong the QT interval (cause an abnormal heart rhythm) What if I miss a dose? If you miss a dose, take it as soon as you can. If it is almost time for your next dose, take only that dose. Do not take double or extra doses. Where should I keep my medicine? Keep out of the reach of children. Store between 2 and 30 degrees C (36 and 86 degrees F). Throw away any unused medicine after the expiration date. What should I tell my health care provider before I take this medicine? They need to know if you have any of these conditions: heart disease history of irregular heartbeat liver disease low levels of magnesium or potassium in the blood an unusual or allergic reaction to ondansetron, granisetron, other medicines, foods, dyes, or preservatives or trying to get breast-feeding What should I watch for while using this medicine? Check with your doctor or health senior resident care director as soon as you can if you have any sign of an allergic reaction. Diphenhydramine Tannate Chewable tablet What is this medicine? DIPHENHYDRAMINE (dye liz walden) is an antihistamine. It is used to treat the symptoms of an allergic reaction. How should I use this medicine? Take this medicine by mouth. Chew it completely before swallowing. Follow the directions on the prescription label. Take your doses at regular intervals. Do not take your medicine more often than directed. Talk to your personnel assistant regarding the use of this medicine in children. While this drug may be prescribed for children as young as 6 years old for selected conditions, precautions do apply. Patients over 65 years old may have a stronger reaction and need a smaller dose. What side effects may I notice from receiving this medicine? Side effects that you should report to your doctor or health senior resident care director as soon as possible: allergic reactions like skin rash, itching or hives, swelling of the face, lips, or tongue changes in vision confused, agitated, nervous irregular or fast heartbeat tremor trouble passing urine unusual bleeding or bruising unusually weak or tired Side effects that usually do not require medical attention (report to your doctor or health senior resident care director if they continue or are bothersome): constipation, diarrhea drowsy headache loss of appetite stomach upset, vomiting thick mucous What may interact with this medicine? Do not take this medicine with any of the following medications: MAOIs like Carbex, Eldepryl, Marplan, Nardil, and Parnate This medicine may also interact with the following medications: alcohol barbiturates, like phenobarbital medicines for bladder spasm like oxybutynin, tolterodine medicines for blood pressure medicines for depression, anxiety, or psychotic disturbances medicines for movement abnormalities or Parkinson's disease medicines for sleep other medicines for cold, cough or allergy some medicines for the stomach like chlordiazepoxide, dicyclomine What if I miss a dose? If you miss a dose, take it as soon as you can. If it is almost time for your next dose, take only that dose. Do not take double or extra doses. Where should I keep my medicine? Keep out of the reach of children. Store at room temperature between 15 and 30 degrees C (59 and 86 degrees F). Keep container closed tightly. Throw away any unused medicine after the expiration date. What should I tell my health care provider before I take this medicine? They need to know if you have any of these conditions: glaucoma high blood pressure heart disease liver disease lung or breathing disease, like asthma pain or difficulty passing urine phenylketonuria prostate trouble ulcers or other stomach problems an unusual or allergic reaction to diphenhydramine, sulfites, other medicines foods, dyes, or preservatives or trying to get breast-feeding What should I watch for while using this medicine? Visit your doctor or health senior resident care director for regular check ups. Tell your doctor or healthcare professional if your symptoms do not start to get better or if they get worse. Your mouth may get dry. Chewing sugarless gum or sucking hard candy, and drinking plenty of water may help. Contact your doctor if the problem does not go away or is severe. This medicine may cause dry eyes and blurred vision. If you wear contact lenses you may feel some discomfort. Lubricating drops may help. See your eye doctor if the problem does not go away or is severe. You may get drowsy or dizzy. Do not drive, use machinery, or do anything that needs mental alertness until you know how this medicine affects you. Do not stand or sit up quickly, especially if you are an older patient. This reduces the risk of dizzy or fainting spells. Alcohol may interfere with the effect of this medicine. Avoid alcoholic drinks. You have been given the following additional information: Vomiting (6Y-Adult) Abdominal Pain, Unknown Cause, (Female) Bladder Infection, Female (Adult) Hypokalemia Ondansetron Oral disintegrating tablet Diphenhydramine Tannate Chewable tablet (Electronically signed by Vania Subramanian P.A.-C 02/27/2017 18:43)
--- NOTE | 2017-02-27 18:46 | ED MAR SUMMARY ---
..... Medication Administration Record [facility] [address] [place] [address] Patient: ELIZA VAZQUEZ Visit ID: [id number] 31y, F Weight: 72.5 kg Height/Length: 66 in BMI: 25.8 ALLERGIES: Penicillins Start 16:08 02/27/2017 Beatrice Bowman R.N., Stop 18:21 02/27/2017 Beatrice Bowman R.N. Medication Administered: IV NS (SALINE), Dose: IV Fluids over 1 hour(s), Rate: 1000 mL/hr, Dispensed: 1000 mL bag, Site: #1 right AC. Medication Ordered: IV NS : initial bolus 1000 mL (1000 mL/hr), then 1000 mL/hr for X1 (NOW); Jalen. Given 16:02/27/2017 Beatrice Bowman R.N. Medication Administered: BENADRYL [IVP] (DIPHENHYDRAMINE HCL), Dose: 50 mg IVP over 2 minute(s), Site: #1 right AC. Medication Ordered: Benadryl IV 50 mg (NOW). Given 16:02/27/2017 Beatrice Bowman R.N. Medication Administered: ZOFRAN [IVP] (ONDANSETRON HCL), Dose: 8 mg IVP over 2 minute(s), Site: #1 right AC. Medication Ordered: Zofran IV 8 mg (NOW). Given 16:02/27/2017 Beatrice Bowman R.N. Medication Administered: PHENERGAN [IVP] (PROMETHAZINE HCL), Dose: 12.5 mg IVP over 1 minute(s), Site: #1 right AC. Medication Ordered: Phenergan IV 12.5 mg (HIGH ALERT MEDICATION, NOW). Given 16:02/27/2017 Beatrice Bowman R.N. Medication Administered: TORADOL [IVP], Dose: 30 mg IVP over 1 minute(s), Site: #1 right AC. Medication Ordered: Toradol IV 30 mg (NOW). Given 16:02/27/2017 Beatrice Bowman R.N. Medication Administered: HALDOL [IVP] (HALOPERIDOL LACTATE), Dose: 3 mg IVP over 2 minute(s), Site: #1 right AC. Medication Ordered: Haldol IV 3 mg (HIGH ALERT MEDICATION, NOW). Start 18:22 02/27/2017 Beatrice Bowman R.N., Stop 18:38 02/27/2017 Beatrice Bowman R.N. Medication Administered: IV NS (SALINE), Dose: IV Fluids over 1 hour(s), Rate: 1000 mL/hr, Dispensed: 1000 mL bag, Site: #1 right AC. Medication Ordered: IV NS : initial bolus 1000 mL (1000 mL/hr), then 1000 mL/hr for X1 (NOW); Jalen. Given 18:38 02/27/2017 Beatrice Bowman R.N. Medication Administered: MACROBID [PO], Dose: 100 mg PO. Medication Ordered: Macrobid PO 100 mg (NOW).
--- NOTE | 2017-02-27 18:46 | ED MAR SUMMARY ---
..... Medication Administration Record [facility] [address] [place] [address] Patient: ELIZA VAZQUEZ Visit ID: [id number] 31y, F Weight: 72.5 kg Height/Length: 66 in BMI: 25.8 ALLERGIES: Penicillins Start 16:08 02/27/2017 Beatrice Bowman R.N., Stop 18:21 02/27/2017 Beatrice Bowman R.N. Medication Administered: IV NS (SALINE), Dose: IV Fluids over 1 hour(s), Rate: 1000 mL/hr, Dispensed: 1000 mL bag, Site: #1 right AC. Medication Ordered: IV NS : initial bolus 1000 mL (1000 mL/hr), then 1000 mL/hr for X1 (NOW); Jalen. Given 16:02/27/2017 Beatrice Bowman R.N. Medication Administered: BENADRYL [IVP] (DIPHENHYDRAMINE HCL), Dose: 50 mg IVP over 2 minute(s), Site: #1 right AC. Medication Ordered: Benadryl IV 50 mg (NOW). Given 16:02/27/2017 Beatrice Bowman R.N. Medication Administered: ZOFRAN [IVP] (ONDANSETRON HCL), Dose: 8 mg IVP over 2 minute(s), Site: #1 right AC. Medication Ordered: Zofran IV 8 mg (NOW). Given 16:02/27/2017 Beatrice Bowman R.N. Medication Administered: PHENERGAN [IVP] (PROMETHAZINE HCL), Dose: 12.5 mg IVP over 1 minute(s), Site: #1 right AC. Medication Ordered: Phenergan IV 12.5 mg (HIGH ALERT MEDICATION, NOW). Given 16:02/27/2017 Beatrice Bowman R.N. Medication Administered: TORADOL [IVP], Dose: 30 mg IVP over 1 minute(s), Site: #1 right AC. Medication Ordered: Toradol IV 30 mg (NOW). Given 16:02/27/2017 Beatrice Bowman R.N. Medication Administered: HALDOL [IVP] (HALOPERIDOL LACTATE), Dose: 3 mg IVP over 2 minute(s), Site: #1 right AC. Medication Ordered: Haldol IV 3 mg (HIGH ALERT MEDICATION, NOW). Start 18:22 02/27/2017 Beatrice Bowman R.N., Stop 18:38 02/27/2017 Beatrice Bowman R.N. Medication Administered: IV NS (SALINE), Dose: IV Fluids over 1 hour(s), Rate: 1000 mL/hr, Dispensed: 1000 mL bag, Site: #1 right AC. Medication Ordered: IV NS : initial bolus 1000 mL (1000 mL/hr), then 1000 mL/hr for X1 (NOW); Jalen. Given 18:38 02/27/2017 Beatrice Bowman R.N. Medication Administered: MACROBID [PO], Dose: 100 mg PO. Medication Ordered: Macrobid PO 100 mg (NOW).
--- NOTE | 2017-02-27 18:46 | ED MED RECONCILIATION SUMMARY ---
Patient: ELIZA VAZQUEZ Medication Reconciliation Report [facility] VisitID: [id number] [place] [address] 31y, F Registration Date/Time: 02/27/2017 Weight: 72.5 kg Height/Length: 66 in. BMI: 25.8 ALLERGIES: Penicillins The patient's Home Medications are listed below: NONE. The source(s) of the original Home Medication information: Not obtained. The following Medications were given to the patient in the Emergency Department: IV NS IV Fluids bolus 0, then 1000 mL/hr, administered: 02/27/2017 4:08:00 PM Benadryl [IVP] IVP 50 mg, administered: 02/27/2017 4:16:00 PM Zofran [IVP] IVP 8 mg, administered: 02/27/2017 4:19:00 PM PHENERGAN [IVP] IVP 12.5 mg, administered: 02/27/2017 4:23:00 PM Toradol [IVP] IVP 30 mg, administered: 02/27/2017 4:24:00 PM HALDOL [IVP] IVP 3 mg, administered: 02/27/2017 4:26:00 PM IV NS IV Fluids bolus 0, then 1000 mL/hr, administered: 02/27/2017 6:22:00 PM Macrobid [PO] PO 100 mg, administered: 02/27/2017 6:38:00 PM The following Medications were prescribed to the patient: Zofran (orally disintegrating tablets) 4 mg: take 1 orally for 3 days. Dispense ten (10). No refill. Substitution is permissible. -- Deanneolejacinto, Vania, P.A.-C Macrobid 100 mg: Take 1 capsule orally every 12 hours for 7 days. No refills. Substitution is permissible. -- Deanneoleva, Vnaia, P.A.-C Klor-Con 10 mEq: take 1 tablet orally every 8 hours. Dispense fifteen (15). No refills. Substitution is permissible. -- Deanneoleva, Vania, P.A.-C Benadryl Allergy 25 mg (available over the counter): take 1-2 orally for 3 days. Dispense fifteen (15). No refill. Substitution is permissible. -- Vania Subramanian P.A.-C
== END 2017-02-27 18:45 | disposition home or self-care (01) ==
LOC: ED SRH 15:50
DX: N39.0 Urinary tract infection, site not specified (principal); E87.6 Hypokalemia; R10.84 Generalized abdominal pain; R11.2 Nausea with vomiting, unspecified; G89.29 Other chronic pain; G40.909 Epilepsy, unspecified, not intractable, without status epilepticus; Z88.0 Allergy status to penicillin
CPT/HCPCS: 90004; 90100; 90469; 92235; 92760; 92761; 92762; 92763; 92764; 92765; 92766; 92767; 93070; 95059